=== PATIENT | male | born 1970 | race Caucasian/White ===

== ENCOUNTER 2018-09-02 10:02 | Inpatient (IN) | payer OTHER ==
--- NOTE | 2018-09-02 10:21 | ED ---
Abdominal Pain/Male - HPI Summary HPI Summary: The pt is a 48 y/o male brought in by ambulance to [facility] c/o upper Abd pain since 1 week ago worsened today. 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 He notes loss of appetite, pallor, fatigue, weight loss (210-159 lbs), nausea, vomiting, SOB and decreased bowel movements but denies fever, CP, cough , diarrhea and dysuria. Recently he needs to sit down after every 10-15 minutes. The sx are aggravated by exertion. The pain is rated 2/10 in severity. - History of Current Complaint Chief Complaint: EDAbdPain Stated Complaint: ABD PAIN WITH WEAKNESS Time Seen by Provider: 09/02/18 10:12 Hx Obtained From: Patient Onset/Duration: Lasting Weeks - 1 week, Still Present, Worse Since - Today morning Timing: Constant Severity Currently: Mild Pain Intensity: 2 Pain Scale Used: 0-10 Numeric Location: Diffuse - Upper abdomen Aggravating Factor(s): Other: - Exertion Alleviating Factor(s): Nothing Associated Signs And Symptoms: Positive: Decreased Appetite, Nausea, Vomiting. Negative: Fever, Chest Pain, Constipation - Allergies/Home Medications Allergies/Adverse Reactions: Allergies Allergy/AdvReac Type Severity Reaction Status Date / Time No Known Allergies Allergy Verified 09/02/18 10:20 Home Medications: Home Medications NK [No Home Medications Reported] 09/02/18 [History Confirmed 09/02/18] PMH/Surg Hx/FS Hx/Imm Hx Previously Healthy: No Endocrine/Hematology History: Denies: Hx Diabetes Cardiovascular History: Denies: Hx Hypertension Sensory History: Denies: Hx Deafness - Cancer History Cancer Type, Location and Year: None reported - Surgical History Surgery Procedure, Year, and Place: None reported Infectious Disease History: No Infectious Disease History: Denies: Traveled Outside the [place] in Last 30 Days - Family History Known Family History: Positive: None - Social History Occupation: Employed Full-time Lives: Alone Alcohol Use: None Substance Use Type: Reports: None Smoking Status (MU): Never Smoked Tobacco Review of Systems Positive: Fatigue. Negative: Fever Negative: Chest Pain Positive: Shortness Of Breath. Negative: Cough Gastrointestinal: Other - Positive: Loss of appetite, weight loss, decreases bowel movement Positive: Abdominal Pain - Upper , Diarrhea, Nausea. Negative: Vomiting Negative: dysuria Skin: Other - Positive: Pallor All Other Systems Reviewed And Are Negative: Yes Physical Exam - Summary Physical Exam Summary: Appearance: Well-appearing, Well-nourished, lying in bed comfortably Skin: Warm, dry, no obvious rash Eyes: sclera anicteric,conjunctival pallor present ENT: mucous membranes moist, pharynx appears normal Neck: Supple, nontender Respiratory: Clear to auscultation, no signs of respiratory distress Cardiovascular: Normal S1, S2. No murmurs. Normal distal pulses in tibial and radial bilaterally. Abdomen: Soft, nontender, mildly distended, normal active bowel sounds present, rectal exam reveals brown stool Musculoskeletal: Normal, Strength/ROM Intact Neurological: A&Ox3, awake and alert, mentation is normal, speech is fluent and appropriate Psychiatric: affect is normal, does not appear anxious or depressed Triage Information Reviewed: Yes Vital Signs On Initial Exam: Initial Vitals Temp Pulse Resp BP Pulse Ox 99.5 F 102 29 142/83 100 09/02/18 10:06 09/02/18 10:06 09/02/18 10:06 09/02/18 10:06 09/02/18 10:06 Vital Signs Reviewed: Yes Diagnostics - Vital Signs Vital Signs Temp Pulse Resp BP Pulse Ox 09/02/18 10:06 99.5 F 102 29 142/83 100 - Laboratory Result Diagrams: 09/03/18 07:51 09/03/18 07:51 Lab Statement: Any lab studies that have been ordered have been reviewed, and results considered in the medical decision making process. - CT Abd/Pel CT CT Interpretation Completed By: Radiologist - IMPRESSION 1. THERE IS A MALIGNANT MASS PRESENT IN THE RIGHT UPPER QUADRANT WHICH APPEARS TO ARISE IN THE PROXIMAL TRANSVERSE COLON ALTHOUGH DOES ABUT THE HEAD OF THE PANCREAS MOST CONSISTENT WITH A COLON CARCINOMA LESS LIKELY EXTENSION OF THE PANCREATIC CARCINOMA. THERE ARE SEVERAL ENLARGED MESENTERIC LYMPH NODES MOST CONSISTENT WITH METASTATIC DISEASE. 2. THERE ARE HYPODENSE HEPATIC LESIONS ALSO SUSPICIOUS FOR METASTATIC DISEASE. 3. MILD DIFFUSE DISTENTION OF THE SMALL BOWEL CONSISTENT WITH EITHER A PARALYTIC ILEUS OR PARTIAL OBSTRUCTION. The ED physician reviewed this radiology report. - EKG 10:31 Cardiac Rate: NL - 93 bpm EKG Rhythm: Sinus Rhythm Summary of EKG Findings: NSR at 93 BPM, P waves, QRS complex, and T waves are within normal limits, T waves and intervals are normal, no ischemic changes. This is a normal EKG Re-Evaluation - Re-Evaluation First Eval Re-Evaluation Time: 11:47 Change: Unchanged Comment: I performed a rectal exam that revealed brown stool. The sample has been sent for an occult test Abdominal Pain Fem Course/Dx - Course Course Of Treatment: A 48 year-old M presents to the ED with a CC of upper abd pain since 1 week ago worsened today. He was seen at 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 He notes loss of appetite, pallor, fatigue, weight loss (210-159), nausea, vomiting, SOB and decreased bowel movements but denies fever, CP, cough , diarrhea and dysuria. A physical exam revealed conjunctival pallor. An abd/ Pel CT is abnormal. An EKG is unremarkable. Labs revealed log Hgb at 5. In the ED course, the pt was given N.s 0.9% 1000 ml IV which improved the symptoms. I discussed the care of the pt with Dr. Pena- Twin who agreed to admit the pt. Patient will be admitted with a final Dx of severe anemia. Pt is agreeable with this plan. Allergies noted. - Diagnoses Provider Diagnoses: Severe anemia, Metastatic colon cancer to liver - Provider Notifications Discussed Care Of Patient With: Zoila Murcia Time Discussed With Above Provider: 11:43 Instructed by Provider To: Admit As Inpatient Discharge - Sign-Out/Discharge Documenting (check all that apply): Patient Departure - Admit - Discharge Plan Condition: Stable Disposition: ADMITTED TO [facility] - Billing Disposition and Condition Condition: STABLE Disposition: Admitted to [facility] - Attestation Statements Document Initiated by Susan: Yes Documenting Scribe: Olesya Silver Provider For Whom Susan is Documenting (Include Credential): Dr. Domenic Quezada MD Scribe Attestation: Olesya White , scribed for Dr. Domenic Quezada MD on 09/03/18 at 1017. Scribe Documentation Reviewed: Yes Provider Attestation: The documentation as recorded by the Olesya scott accurately reflects the service I personally performed and the decisions made by me, Dr. Domenic Quezada MD
[2018-09-02] MEDS ORDERED: NS 0.9% 1000 ML* 1,000 ML IV ONE (10:22)
[2018-09-02 10:50] LABS: INR 1.2 (0.77-1.02)
[2018-09-02 10:58] LABS: EGFR Non-African American 108.3 (>60)
[2018-09-02 11:01] LABS: Hematocrit 22 % (42-52); Hemoglobin 5.7 g/dl (14.0-18.0); Mean Corpuscular HGB Conc 26 g/dl (31-36); Mean Corpuscular Hemoglobin 13 pg (27-31); Mean Corpuscular Volume 50 fL (80-94); Mean Platelet Volume 8.3 fL (7.4-10.4); Platelet Count 774 10^3/ul (150-450); Red Cell Distribution Width 23 % (10.5-15); White Blood Count 8.3 10^3/ul (3.5-10.8)
[2018-09-02 11:34] LABS: ABS Basophils 0 10^3/ul (0-0.2); ABS Eosinophils 0 10^3/ul (0-0.6); ABS Lymphocytes 0.7 10^3/ul (1.0-4.8); ABS Monocytes 0.4 10^3/ul (0-0.8); ABS Neutrophils 7.1 10^3/ul (1.5-7.7); ABS Nucleated RBC 0 10^3/ul; Eosinophil % 0.2 % (0-6); Lymphocyte % 8.3 % (25-47); Nucleated Red Blood Cells % 0.1
[2018-09-02] MEDS ORDERED: Iohexol 300* (CONTRAST) 10 ML SDV IV ONE (12:55)
[2018-09-02] MEDS ORDERED: Morphine VIAL* 4 MG/ML VIAL (1 ml vial) IV PRN (14:29)
[2018-09-02] MEDS ORDERED: Acetaminophen TAB* 325 MG PO PRN (14:29)
[2018-09-02] MEDS ORDERED: PEG 3000 GI LAVAGE* 1 GALLON PO ONE (14:30)
[2018-09-02] MEDS ORDERED: Ondansetron INJ* 2 MG/ML VIAL IV PRN (14:30)
[2018-09-02] MEDS: NS 0.9% 1000 ML* 1,000 ML IV SCH (15:56)
--- NOTE | 2018-09-02 17:18 | HP ---
ADDENDUM NOW INCLUDED ON THIS REPORT CC: [facility] * HISTORY AND PHYSICAL: DATE OF ADMISSION: 09/02/18 PRIMARY CARE PROVIDER: One of the providers from [facility]. The patient does not remember the name. CHIEF COMPLAINT: Generalized weakness, lightheadedness, abdominal pain whenever the patient attempts to eat. HISTORY OF PRESENT ILLNESS: Deven Polk is a 48-year-old male with no significant past medical history, who stated that he used to drink beer "a lot" and he quoted 12 beers in a week. He stopped drinking in the summer of this year when started experiencing abdominal pain. He also noted that whenever he tries to eat, it hurts him in the upper abdomen and he changed his diet to "healthier diet." Nevertheless, he continues to have no appetite and continues to lose weight. The patient stated that his baseline weight approximately a year ago was 210 pounds and currently is 159. He stated that he has not eaten for several days because he just does not feel hungry. His last bowel movement was 5 days ago. He stated that whenever he tries to eat, he has abdominal pain in his epigastrium. In the recent past, he noted that he gets lightheaded when he tries to stand up and it takes him several minutes to do so. He also noted severe dyspnea on exertion. He denies any chest pain. The patient's hemoglobin was noted to be 5.7 with MCV of 50. He is going to be admitted with a diagnosis of severe anemia. CT of abdomen is pending at the time of dictation. PAST MEDICAL HISTORY: No surgical and no medical history. MEDICATIONS: No medications. ALLERGIES: No known drug allergies. FAMILY HISTORY: Parents and younger brother are healthy. No history of cancer , diabetes, or heart disease. SOCIAL HISTORY: The patient lives alone. He is . As a surrogate, he mentions his parents. He denies smoking and drug history. He used to drink 12 beers a week, but he quit in the summer of 2017. REVIEW OF SYSTEMS: Please see history of present illness. All the remaining 12 systems were reviewed with the patient and were otherwise negative. Specifically, the patient denies melanotic stools or bright red blood per rectum. PHYSICAL EXAMINATION GENERAL: The patient is a very pleasant 48-year-old male with a BMI of 21.6. The patient is in no acute distress. Alert, awake, and oriented x3. VITAL SIGNS: Blood pressure of 125/73, heart rate of 92 and regular, respiratory rate 19, oxygen saturation 100% on room air, temperature 99.5. HEENT: Head: Atraumatic, normocephalic. Eyes: Pupils are equal, reactive to light and accommodation. Oropharynx is clear. Mucosa moist. NECK: Supple. No JVD. No bruits bilaterally. RESPIRATORY: Clear to auscultation bilaterally. CARDIOVASCULAR: Regular rate and rhythm. No murmur. ABDOMEN: Slightly distend, soft, tender in the epigastric area with no rebound and no guarding. Bowel sounds are present in all 4 quadrants. Hepatomegaly noted. EXTREMITIES: There is no edema. Pulses are +2 bilaterally. No clubbing or cyanosis. NEUROLOGIC: Speech is clear. Cranial nerves II through XII are grossly intact. Motor strength is 5/5 bilaterally. PSYCHIATRIC: Oriented x3 with no evidence of anxiety or depression. SKIN: On evaluation of the skin, pallor noted. No ecchymotic areas or rashes. DIAGNOSTIC STUDIES/LAB DATA: Laboratory data showed white blood cell count of 8.3, hemoglobin of 5.7, hematocrit of 22, MCV of 50, platelets of 774. INR of 1.2, PTT of 28.3. Sodium was 133, potassium 3.8, chloride 100, carbon dioxide 17, anion gap of 16, BUN 15, creatinine 0.77. Liver function tests unremarkable apart from alkaline phosphatase, which is slightly elevated at 156. TSH of 2.04. The patient's EKG showed sinus tachycardia with a heart rate of 93 beats per minute with no significant ST changes. ASSESSMENT AND PLAN: A 48-year-old male with no significant past medical history who presents with severe anemia that is microcytic and symptoms of early satiety as well as epigastric abdominal pain. At this point, the differential includes GI bleed versus malignancy. CT of abdomen is pending at the time of dictation. The patient is going to be admitted to the hospital. He is currently being transfused a unit of packed red blood cells that was ordered in the ED. We will follow up with checking the patient's lactic acid, LDH, haptoglobin, ferritin as well as remaining iron studies. Stool occult blood is pending at the time of dictation. At this point, unfortunately due to the patient's symptomatology, possibility of malignancy is rather high. For DVT prophylaxis, the patient is going to be placed on sequential compression devices and due to severe microcytic anemia, anticoagulation is not going to be started. The patient's code status is full and his surrogates are his parents, who live in [place]. TIME SPENT: Approximately 62 minutes was spent on admission of this patient, more than half of that time was spent [id number] with the patient during the interview and physical exam. ADDENDUM: DATE OF ADMISSION: 09/02/18 Please note that the patient's CT of the abdomen and pelvis showed malignant mass present in the right upper quadrant, which appears to be arising from the proximal transverse colon, although does abut the head of the pancreas most consistent with a colon carcinoma, less likely an extension of pancreatic carcinoma. I discussed the case with both Dr. Miranda and Dr. Florentino. Both the gastroenterology and oncology service is going to be involved in the patient's care. Dr. Miranda is planning to likely perform colonoscopy tomorrow. The patient is going to receive preparation with GoLYTELY tonight. The patient was informed about the worrisome findings. All the questions were answered. [id number]/CPS #: [id number]/CPS #: [id number] [facility]
--- NOTE | 2018-09-02 19:21 | HP ---
HISTORY AND PHYSICAL: ADDENDUM: DATE OF ADMISSION: 09/02/18 Please note that the patient's CT of the abdomen and pelvis showed malignant mass present in the right upper quadrant, which appears to be arising from the proximal transverse colon, although does abut the head of the pancreas most consistent with a colon carcinoma, less likely an extension of pancreatic carcinoma. I discussed the case with both Dr. Miranda and Dr. Florentino. Both the core driller helper and Oncology is going to be involved in the patient's care. Dr. Miranda is planning to likely perform colonoscopy tomorrow. The patient is going to receive preparation with GoLYTELY tonight. The patient was informed about the worrisome findings. All the questions were answered. [id number]/[facility] #: [id number] [facility]
--- NOTE | 2018-09-03 00:36 | CONS ---
DICTATION ENDS ABRUPTLY GASTROENTEROLOGY CONSULTATION: DATE OF CONSULT: 09/02/18 CONSULTING PHYSICIANS: Zoila Nguyen REASON FOR CONSULTATION: Abdominal pain, weight loss, CT scan showing apparent transverse colon cancer. HISTORY OF PRESENT ILLNESS: This 48-year-old long-term [employer] employee with no significant past medical history began having trouble eating this summer. He had off and on abdominal pain. He lost his appetite. He did not have any vomiting. His bowels diminished in frequency consistent with reduced intake. He has been feeling weaker and weaker and was unable to work. His co-worker sent him to the emergency room. In the ER, CT of the abdomen showed transverse colon mass and probable dilation of the small bowel. His hemoglobin is 5.7, hematocrit 22, and MCV 50. PAST MEDICAL HISTORY: Essentially none. In the 17 years since he came to [place], this is his first hospital visit. MEDICATIONS: At home, none. ALLERGIES: None to drugs. FAMILY HISTORY: Says no history of cancer. 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 The lived here 3 to 4 years. They are now . She is in [place] and he is back here. He worked at the [employer] and now with [employer] in the last 10 years. Parents are still in [place] and do not know at this moment of his admission. REVIEW OF SYSTEMS: No history of syncope, seizures, KS, cardiac disease in general, TB, pulmonary disease, asthma, hepatitis, jaundice, renal stones, or gross hematuria. PHYSICAL EXAM: He is a pale man lying in bed, seemingly tired and almost breathless. He has no icterus. HEENT exam is otherwise unremarkable. He has no adenopathy. His lungs are clear. Heart sounds are regular. His abdomen is globally a little distended, it is firm. Bowel sounds are diminished, although he says feeling rumbling. Rectal deferred. Extremities show no edema. Pulses are intact. Neurologic, nonfocal, though he is weak. HOSPITAL COURSE: Since admission, he has been given Colyte and had 3 glasses but then about 2 hours later vomited up a large amount in the bathroom. He did have 1 bowel movement, his first in 4 days. He then commented that earlier today and yesterday he had not had any gas per rectum that he can recall. _ and has only been able to eat crackers and sips of water. He has not had a solid meals in [address] scan - transverse colon mass and small bowel dilation. 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 Situation is quite difficult. He may be able to nurse down some more Colyte and get cleaned out or ultimately enemas may be required. If he cannot get cleaned out, primary resection and ileostomy may be required. A surgical and oncology consult would appear valuable. DICTATION ENDS ABRUPTLY [id number]/[facility] #: [id number] [place]
[2018-09-03] MEDS: NS 0.9% 1000 ML* 1,000 ML IV SCH (04:44)
--- NOTE | 2018-09-03 06:18 | CONS ---
MEDICAL ONCOLOGY CONSULTATION REPORT: DATE OF CONSULT: 09/02/18 REASON FOR CONSULTATION: Likely colon carcinoma. HISTORY OF PRESENT ILLNESS: Deven Polk is a 48-year-old male who reports that he has not seen his physician since the . He reports approximately 6 to 8- week episodes of intermittent fatigue with decreased appetite, periumbilical pain. No change in bowel movements at that time, no associated nausea and vomiting. He reports that last week, these symptoms increased to the point where he was unable to go to work at [employer] Seven days ago, the fatigue was to the point where he collapsed into bed and was dizzy and lightheaded and symptoms increased with even minimal exertion. He reports having had no meals for the past 5 days, episodes of vomiting started 4 days ago and having pain with any oral intake more than water, even just apple juice. No bowel movements in the past 5 days. The bowel movements have been decreasing even prior to that period of time. Abdominal pain has been as much as 5 to 6 over 10. At the time of the consultation, he reports the pain at least 4/10. His weight has dropped from 200 to 210 pounds down to current 159. He reports having stopped drinking beer in March of this year due to change in taste and desire for the beer. Prior to this, he was drinking approximately a 12-pack per week but likely more. He reports since then only occasional alcohol. He is now getting dizzy and lightheaded on trying to stand and it takes him quite some period of time to do so. He has severe shortness of breath without chest pain even on walking short distances. PAST MEDICAL HISTORY: No previous hospitalizations. No surgeries. MEDICATIONS: None. ALLERGIES: None. FAMILY HISTORY: Father and mother alive and well at 71 and 72. Younger brother is in good health. A paternal grandmother with colon cancer about age 80, no other family history of malignancy. SOCIAL HISTORY: The patient denies any cigarettes or any street drugs. He reports alcohol in the past with a decrease in his alcohol intake since March but heavier before that. He lives alone. He reports he has a poor support system and no friends in the area and little contact with his coworkers outside of work. He moved to [place] to 2000 at that time his ex- was at [place]. They subsequently and he has no children. REVIEW OF SYSTEMS: Denies any headaches, neurologic complaints. Denies any significant rashes. Denies changes in bowel or bladder habits prior to the last several weeks. Review of systems otherwise negative except as discussed above. PHYSICAL EXAMINATION: A 48-year-old male, somewhat unkempt, lying comfortably in bed. Vital Signs: Blood pressure 125/73, pulse 92 and regular, O2 saturations 100% on room air. T-max 99.5. BMI of 21.6. HEENT: PERRL. EOMI. No erythema or exudate. No scleral icterus. Moist mucous membranes. No palpable cervical, supraclavicular, or axillary adenopathy. Lungs: Clear. Heart: Regular rate and rhythm without murmurs. Abdomen: Decreased bowel sounds throughout but bowel sounds are present. Liver is palpable below the right costal margin but does not seem to be enlarged. No masses are palpated. Extremities: No edema. Back no CVA or spinal tenderness. Neurologic exam without focal deficits. Cranial nerves III through XII intact. Motor is 5/5 throughout. DIAGNOSTIC STUDIES/LAB DATA: CBC: White count 8300, hematocrit 22, hemoglobin 5.7, MCV of 74, platelets counts 774,000, PTT 28.3, INR 1.2. Electrolytes: Sodium 133, potassium 3.8, chloride 100, bicarb 17, BUN 15, creatinine 0.77. Alk phos 156, AST and ALT and bilirubin are normal. CT scan with a large mass in the area of the right upper quadrant from the proximal transverse colon. There are at least two lesions in liver which appear suspicious. There is adenopathy nearby the colon lesion. There is a suggestion of some mesenteric fullness on review of the CT scan. IMPRESSION: Likely a colon cancer, highly likely to be metastatic. On the CT scan, there is also suggestion of early small bowel obstruction, although incomplete. Gastroenterology has been consulted as well as ourselves. The plan is for colonoscopy tomorrow to make a diagnosis and also to check and see how significant potential obstruction of the colon is. If for some reason, pathology cannot be obtained through the colonoscopy, a liver biopsy could certainly be performed. At current time the patient is receiving packed red blood cells and should be maintained with an H and H above 24/8 given his likely recent bleeding. CEA will be checked. At some point, either during the hospitalization or subsequently he will also require a CT scan of the chest to look for any other sites of metastatic disease. Further recommendations will follow, once we see how the patient has stabilized and once we have results from the colonoscopy. [id number]/[facility] #: [id number] [facility]
[2018-09-03 08:22] LABS: Hematocrit 24 % (42-52); Hemoglobin 6.8 g/dl (14.0-18.0); Mean Corpuscular HGB Conc 28 g/dl (31-36); Mean Corpuscular Hemoglobin 16 pg (27-31); Mean Corpuscular Volume 57 fL (80-94); Mean Platelet Volume 8.1 fL (7.4-10.4); Platelet Count 553 10^3/ul (150-450); White Blood Count 8.4 10^3/ul (3.5-10.8)
[2018-09-03 08:44] LABS: EGFR Non-African American 144.4 (>60)
[2018-09-03 09:05] LABS: ABS Basophils 0.1 10^3/ul (0-0.2); ABS Eosinophils 0 10^3/ul (0-0.6); ABS Monocytes 0.5 10^3/ul (0-0.8); ABS Neutrophils 6.7 10^3/ul (1.5-7.7); ABS Nucleated RBC 0 10^3/ul; Eosinophil % 0.3 % (0-6); Lymphocyte % 12.5 % (25-47); Nucleated Red Blood Cells % 0; Red Blood Count 4.21 10^6/ul (4.00-5.40); Red Cell Distribution Width 33 % (10.5-15)
[2018-09-03] MEDS ORDERED: fentaNYL* 50 MCG/ML 2 ML VIAL (100 MCG VIAL) ONE (14:38)
[2018-09-03] MEDS ORDERED: Midazolam* 1 MG/ML 10 ML VIAL (10 MG) ONE (14:38)
--- NOTE | 2018-09-03 17:51 | PN ---
Subjective Date of Service: 09/03/18 Interval History: Pt is feeling ok currently. He states his pain is minimal today but attributes that to not really eating much. He states he is not really passing any flatus. Objective Active Medications: Acetaminophen (Tylenol Tab*) 650 mg PO Q4H PRN PRN Reason: FEVER/PAIN Sodium Chloride (Ns 0.9% 1000 Ml*) 1,000 mls @ 75 mls/hr IV PER RATE ANGELA Last Admin: 09/03/18 04:44 Dose: 75 mls/hr Morphine Sulfate (Morphine Vial*) 1 mg IV Q2H PRN PRN Reason: PAIN Last Admin: 09/02/18 19:41 Dose: 1 mg Ondansetron HCl (Zofran Inj*) 4 mg IV Q6H PRN PRN Reason: NAUSEA Last Admin: 09/02/18 18:40 Dose: 4 mg Vital Signs - 8 hr 09/03/18 11:55 Temperature 98.4 F Pulse Rate 89 Respiratory 19 Rate Blood Pressure 115/60 (mmHg) O2 Sat by Pulse 100 Oximetry Oxygen Devices in Use Now: None Appearance: Middle aged male lying in bed, NAD Eyes: No Scleral Icterus Ears/Nose/Mouth/Throat: Mucous Membranes Moist Respiratory: Symmetrical Chest Expansion and Respiratory Effort, Clear to Auscultation - anteriorly Cardiovascular: NL Sounds; No Murmurs; No JVD, RRR, No Edema Abdominal: - - BS+ mildly distended and slightly firm, mildly tender to palpation Extremities: No Clubbing, Cyanosis Skin: No Nodules or Sclerosis Neurological: Alert and Oriented x 3 - Nutrition: Malnutrition Diagnosis/Plan Malnutrition Assessment by Registered Dietitian: Malnutrition Assessment Clinical Characteristics Acute,Severe Malnutrition Assessment: - Consumed only saltines x1 wk; intake <50% of Criteria needs x1 wk - UBW 212lbs x1 yr ago, current wt 160lbs (24.5 % wt loss x1 yr: severe); anticipate severe wt loss x1 wk w/ diminished nutrient consumption - Decrease in physiological function (chief complaint: generalized weakness) Malnutrition Assessment: - Will monitor ability to advance diet and offer Interventions appropriate nutritional supplement as able - As pt has been w/o adequate nutrition x ~ 1 week, may consider nutrition support (TPN) if unable to advance diet (within 3-5 days) Malnutrition Assessment: Goals 1) Recommend advancing diet as able; soft (GI related) likely best tolerated -May consider nutrition support (TPN) if unable to advance diet (within 3-5 days) 2) Ultimately, adequate po intake to support lean body mass and hydration status w/o undesired wt loss Result Diagrams: 09/03/18 07:51 09/03/18 07:51 Microbiology and Other Data: Microbiology 09/02/18 11:48 Stool Occult Blood (TRACIE) - Final Stool Assess/Plan/Problems-Billing Mr Polk is a 48 yo M with no significant PMHx who presented to the ER with c/o rectal bleeding and was found to have a large transverse colon mass. - Patient Problems (1) Colon cancer metastasized to liver Current Visit: Yes Status: Acute Code(s): C18.9 - MALIGNANT NEOPLASM OF COLON, UNSPECIFIED; C78.7 - SECONDARY MALIG NEOPLASM OF LIVER AND INTRAHEPATIC BILE DUCT SNOMED Code(s): 845019828 Comment: The patient likely has metastatic colon ca. Colonoscopy was performed today and an attempted was made to biopsy the mass but was technically difficult. If path negative bx of liver lesion should be considered. Will get surgery consult tomorrow as pt is nearly obstructed. (2) Iron deficiency anemia Current Visit: Yes Status: Acute Code(s): D50.9 - IRON DEFICIENCY ANEMIA, UNSPECIFIED SNOMED Code(s): 97416050 Comment: The patient presented with a marked anemia secondary to blood loss and severe iron deficiency. He has received 2 units PRBC and will receive a 3rd tonight. (3) DVT prophylaxis Current Visit: Yes Status: Acute Code(s): RTH9504 - SNOMED Code(s): 996952106 Comment: ambulation (4) Full code status Current Visit: Yes Status: Acute Code(s): Z78.9 - OTHER SPECIFIED HEALTH STATUS SNOMED Code(s): 406592038
[2018-09-03] MEDS ORDERED: Morphine VIAL* 4 MG/ML VIAL (1 ml vial) IV PRN (17:59)
--- NOTE | 2018-09-03 19:17 | PRO ---
AMENDED REPORT NOW INCLUDES DATE OF PROCEDURE - ESIGNED BEFORE ADJUSTMENT * DATE OF PROCEDURE: 09/03/18 - ROOM #420 PROCEDURE: Flexible sigmoidoscopy with biopsy. ADMITTING PHYSICIAN: Dr. Zoila Pena. INDICATIONS: Gentleman with weight loss, severe iron-deficiency anemia, and likely transverse colon mass on CT scan with lesions in liver suggestive of metastatic colon cancer. Scheduled for colonoscopy to assess for mass. The patient is unable to tolerate colonoscopy prep as he vomited. Given several enemas this morning. MEDICATIONS GIVEN: 1. Midazolam 9 mg IV. 2. Fentanyl 75 mcg IV. PROCEDURE IN DETAIL: Full disclosure of risks was reviewed with the patient as detailed on the consent form. The patient was placed in the left lateral decubitus position and monitored with continuous pulse oximetry, capnography, interval blood pressure monitoring, and direct observation. After anorectal exam was performed, the colonoscope was inserted into the rectum and advanced under direct vision to likely transverse colon. Findings and interventions are described below. The patient tolerated the procedure well and was recovered in the GI recovery area. FINDINGS: Anorectal exam was unremarkable. Adult colonoscope was inserted into the rectum and advanced slowly forward. There was solid stool encountered in the distal colon that became increasingly more present in the splenic flexure. I was able to advance past the splenic flexure around solid stool and move into the distal transverse colon. Around that point, a quite narrowed area was encountered with almost a volvulus-type appearance to the mucosa. There was solid stool in this area making it a bit challenging to see, although I suspect there was a polypoid mass that was partially visible at this narrowed point. Scope was unable to be advanced through this area. Unfortunately, the mass and the narrowed area were at a location that was difficult to access with biopsy forceps. Attempts were made to biopsy in the region of the suspected mass, and several pieces of tissue were obtained and will be sent to Pathology for review. Scope was withdrawn from the patient. An adult gastroscope was then inserted in an effort to further evaluate this narrowed area. Unfortunately, the gastroscope was unable to move past the splenic flexure in part due to looping in the left colon as well as the large amount of solid stool. IMPRESSION: 1. Scope advanced to distal transverse colon where a very narrowed area was encountered. Scope was unable to advance through this area. Suspect that I was able to obtain a partial view of the colonic mass in this narrowed area. Biopsies obtained from this area. 2. Remainder of colon was unable to be thoroughly evaluated due to the presence of solid stool, although no large masses or polyps seen as the scope was withdrawn. RECOMMENDATIONS: 1. Discussed with the patient and primary team. We will await pathology to see if biopsies are able to provide a diagnosis. If biopsies are nondiagnostic, then I would agree with oncology's recommendation and consider biopsy of liver lesion. 2. Agree with Oncology recommendation for CEA and CT chest. 3. The patient does appear obstructed in the area of transverse colon as colonoscope was unable to traverse the very narrowed portion of the colon. Would recommend evaluation by Surgery. Thank you very much for this kind referral. [id number]/[facility] #: [id number] CHEMA
[2018-09-04 07:01] LABS: Hematocrit 28 % (42-52); Hemoglobin 7.7 g/dl (14.0-18.0); Mean Corpuscular HGB Conc 28 g/dl (31-36); Mean Corpuscular Hemoglobin 17 pg (27-31); Mean Corpuscular Volume 62 fL (80-94); Mean Platelet Volume 8.4 fL (7.4-10.4); Platelet Count 549 10^3/ul (150-450); Red Blood Count 4.41 10^6/ul (4.00-5.40); Red Cell Distribution Width 36 % (10.5-15)
[2018-09-04] MEDS ORDERED: Famotidine IV* 10 MG/ML 2 ML (20 mg) IV ONE (10:44)
[2018-09-04 12:51] LABS: INR 1.25 (0.77-1.02)
[2018-09-04] MEDS ORDERED: DiMENhydriNATE IV* 50 MG/ML VIAL IV PUSH PRN ×2 (12:57→22:01)
[2018-09-04] MEDS ORDERED: Morphine VIAL* 4 MG/ML VIAL (1 ml vial) IV PRN (12:57)
[2018-09-04] MEDS ORDERED: fentaNYL* 50 MCG/ML 2 ML VIAL (100 MCG VIAL) IV PRN (12:57)
[2018-09-04] MEDS ORDERED: PROCHLORPERAZINE INJ 5 MG/ML 2 ML VIAL IV PRN ×2 (12:57→22:01)
[2018-09-04] MEDS ORDERED: Naloxone* 0.4 MG/ML 1 ML VIAL IV PRN ×2 (12:57→22:01)
[2018-09-04] MEDS ORDERED: Buffered Lidocaine 0.9% SYRIN* 5 ML/SYR SYRINGE INTRADERM ONE (12:59)
[2018-09-04] MEDS ORDERED: Scopolamine 1.5 mg* PATCH TRANSDERM ONE (12:59)
--- NOTE | 2018-09-04 15:59 | PN ---
Subjective Date of Service: 09/04/18 Interval History: Pt is feeling ok today. He is anxious for surgery this afternoon. He has many questions related to how he will feel after. He has no pain or nausea at this time. Objective Active Medications: Acetaminophen (Tylenol Tab*) 650 mg PO Q4H PRN PRN Reason: FEVER/PAIN Sodium Chloride (Ns 0.9% 1000 Ml*) 1,000 mls @ 75 mls/hr IV PER RATE ANGELA Last Admin: 09/03/18 04:44 Dose: 75 mls/hr Morphine Sulfate (Morphine Vial*) 2 mg IV Q2H PRN PRN Reason: PAIN Ondansetron HCl (Zofran Inj*) 4 mg IV Q6H PRN PRN Reason: NAUSEA Last Admin: 09/02/18 18:40 Dose: 4 mg Pharmacy Profile Note (Scopolamine Patch Remove*) 1 note PATCH OFF ONCE ONE Stop: 09/07/18 13:01 Oxygen Devices in Use Now: None Appearance: Middle aged thin pale male lying in bed, NAD Eyes: No Scleral Icterus Ears/Nose/Mouth/Throat: Mucous Membranes Moist Respiratory: Symmetrical Chest Expansion and Respiratory Effort, Clear to Auscultation Cardiovascular: NL Sounds; No Murmurs; No JVD, RRR, No Edema Abdominal: NL Sounds; No Tenderness; No Distention Extremities: No Clubbing, Cyanosis Skin: No Rash or Ulcers Neurological: Alert and Oriented x 3 - Nutrition: Malnutrition Diagnosis/Plan Malnutrition Assessment by Registered Dietitian: Malnutrition Assessment Clinical Characteristics Acute,Severe Malnutrition Assessment: - Consumed only saltines x1 wk; intake <50% of Criteria needs x1 wk - UBW 212lbs x1 yr ago, current wt 160lbs (24.5 % wt loss x1 yr: severe); anticipate severe wt loss x1 wk w/ diminished nutrient consumption - Decrease in physiological function (chief complaint: generalized weakness) Malnutrition Assessment: - Will monitor ability to advance diet and offer Interventions appropriate nutritional supplement as able - As pt has been w/o adequate nutrition x ~ 1 week, may consider nutrition support (TPN) if unable to advance diet (within 3-5 days) Malnutrition Assessment: Goals 1) Recommend advancing diet as able; soft (GI related) likely best tolerated -May consider nutrition support (TPN) if unable to advance diet (within 3-5 days) 2) Ultimately, adequate po intake to support lean body mass and hydration status w/o undesired wt loss Result Diagrams: 09/04/18 06:17 09/03/18 07:51 Microbiology and Other Data: Microbiology 09/02/18 11:48 Stool Occult Blood (TRACIE) - Final Stool Assess/Plan/Problems-Billing Mr Polk is a 48 yo M with no significant PMHx who presented to the ER with c/o rectal bleeding and was found to have a large transverse colon mass. - Patient Problems (1) Colon cancer metastasized to liver Current Visit: Yes Status: Acute Code(s): C18.9 - MALIGNANT NEOPLASM OF COLON, UNSPECIFIED; C78.7 - SECONDARY MALIG NEOPLASM OF LIVER AND INTRAHEPATIC BILE DUCT SNOMED Code(s): 277482751 Comment: Likely metastatic colon cancer (mets to liver). Surgery consulted today and plan is to go to the OR this afternoon. ?diverting colostomy vs resection. Liver biopsy to be done if lesion visible intra-op. Path from colonscopy biopsy negative but Dr. Ignacia Agustin stated it was technically difficult to get the biopsy and was not sure she actually biopsied the mass. Oncology to follow up in near future (after surgery). (2) Iron deficiency anemia Current Visit: Yes Status: Acute Code(s): D50.9 - IRON DEFICIENCY ANEMIA, UNSPECIFIED SNOMED Code(s): 08866526 Comment: Pt now s/p 3 unit PRBC. 2 units on hold for OR. Follow up H/H tomorrow AM. (3) DVT prophylaxis Current Visit: Yes Status: Acute Code(s): WKY1797 - SNOMED Code(s): 501978987 Comment: ambulation (4) Full code status Current Visit: Yes Status: Acute Code(s): Z78.9 - OTHER SPECIFIED HEALTH STATUS SNOMED Code(s): 641915588
[2018-09-04] MEDS ORDERED: fentaNYL* 50 MCG/ML 2 ML VIAL (100 MCG VIAL) ONE ×3 (17:31→21:43)
[2018-09-04] MEDS ORDERED: Midazolam* 1 MG/ML 5 ML VIAL (5 MG) ONE (17:31)
[2018-09-04] MEDS ORDERED: ERTApenem 1 GM in 50 mL NS IVPB STA (18:11)
[2018-09-04] MEDS ORDERED: KETAMINE HCL* 50 MG/ML 10 ML VIAL ONE (18:30)
[2018-09-04] MEDS ORDERED: Dexamethasone IV* 4 MG/ML 1 ML (4 MG) ONE (19:21)
[2018-09-04] MEDS ORDERED: Ondansetron INJ* 2 MG/ML VIAL ONE (19:21)
[2018-09-04] MEDS ORDERED: Morphine VIAL* 10 MG/ML 1 ML VIAL ONE (19:56)
[2018-09-04 21:01] LABS: Hematocrit 29 % (42-52); Hemoglobin 8.2 g/dl (14.0-18.0)
[2018-09-04] MEDS ORDERED: Morphine INJ* 10 MG/ML 1 ML CARPUJECT ONE (22:08)
[2018-09-04] MEDS: Morphine VIAL* 4 MG/ML VIAL (1 ml vial) IV PRN ×3 (22:09→22:20)
[2018-09-04] MEDS ORDERED: Ketorolac INJ* 30 MG/ML 1 ML VIAL ONE (22:18)
[2018-09-04] MEDS ORDERED: HYDROmorphone PCA* 20 MG/20 ML PCA.SYRING ONE (22:32)
[2018-09-04] MEDS ORDERED: Ketorolac INJ* 30 MG/ML 1 ML VIAL IV PUSH SCH (23:00)
[2018-09-04] MEDS: NS 0.9% @ 50 MLS/HR IV SCH (23:45)
[2018-09-05] MEDS ORDERED: Ketorolac INJ* 30 MG/ML 1 ML VIAL IV PUSH SCH
[2018-09-05] MEDS ORDERED: HYDROmorphone PCA* 20 MG/20 ML PCA.SYRING PCA SCH (00:30)
[2018-09-05] MEDS: Piperacillin/Tazobac ADVAN(*) 3.375 GM in NS 0.9% 100 ML* 100 ML IVPB SCH ×3 (00:50→17:24)
[2018-09-05] MEDS: Ketorolac INJ* 30 MG/ML 1 ML VIAL IV PUSH SCH ×4 (05:02→21:31)
[2018-09-05] MEDS: NS 0.9% @ 50 MLS/HR IV SCH ×2 (06:26→14:44)
[2018-09-05 06:29] LABS: Hematocrit 35 % (42-52); Hemoglobin 10.7 g/dl (14.0-18.0); Mean Corpuscular HGB Conc 30 g/dl (31-36); Mean Corpuscular Hemoglobin 20 pg (27-31); Mean Corpuscular Volume 66 fL (80-94); Mean Platelet Volume 8.3 fL (7.4-10.4); Platelet Count 623 10^3/ul (150-450); Red Cell Distribution Width 39 % (10.5-15); White Blood Count 18.8 10^3/ul (3.5-10.8)
[2018-09-05 06:43] LABS: EGFR Non-African American 105.1 (>60)
[2018-09-05 06:47] LABS: ABS Basophils 0 10^3/ul (0-0.2); ABS Eosinophils 0 10^3/ul (0-0.6); ABS Lymphocytes 0.3 10^3/ul (1.0-4.8); ABS Monocytes 0.4 10^3/ul (0-0.8); ABS Nucleated RBC 0 10^3/ul
[2018-09-05] MEDS ORDERED: NS 0.9% 1000 ML* 1,000 ML IV ONE (14:44)
--- NOTE | 2018-09-05 14:44 | PN ---
Subjective Date of Service: 09/05/18 Interval History: Pt is feeling ok today. He states his pain is currently under control on the [employer]. He has not had any stool material in the ileostomy bag yet. He denies any CP or SOB but does state when he takes a deep breath he feels a sharp twinge of pain at the incision. Objective Active Medications: Acetaminophen (Tylenol Tab*) 650 mg PO Q4H PRN PRN Reason: FEVER/PAIN Piperacillin Sod/Tazobactam (Sod 3.375 gm/ Sodium Chloride) 100 mls @ 25 mls/ hr IVPB Q8H [facility] Last Admin: 09/05/18 07:53 Dose: 25 mls/hr Hydromorphone HCl ([employer] Associate*) 20 mg in 20 mls @ 0 mls/hr [employer] .change Q24H [facility]; Protocol Sodium Chloride (Ns 0.9% 1000 Ml*) 1,000 mls @ 125 mls/hr IV PER RATE [facility] Last Admin: 09/05/18 06:26 Dose: 125 mls/hr Ketorolac Tromethamine (Toradol Inj*) 30 mg IV PUSH Q6H [facility] Stop: 09/06/18 16:01 Last Admin: 09/05/18 10:52 Dose: 30 mg Ondansetron HCl (Zofran Inj*) 4 mg IV Q6H PRN PRN Reason: NAUSEA Last Admin: 09/02/18 18:40 Dose: 4 mg Pharmacy Profile Note (Scopolamine Patch Remove*) 1 note PATCH OFF ONCE ONE Stop: 09/07/18 13:01 Vital Signs - 8 hr 09/05/18 09/05/18 09/05/18 07:24 07:44 07:50 Temperature 97.7 F Pulse Rate 90 106 Respiratory 16 16 16 Rate Blood Pressure 113/76 (mmHg) O2 Sat by Pulse 97 100 100 Oximetry 09/05/18 11:42 Temperature 98.6 F Pulse Rate 111 Respiratory 16 Rate Blood Pressure 119/78 (mmHg) O2 Sat by Pulse 99 Oximetry Oxygen Devices in Use Now: None Appearance: Middle aged male sitting up in a chair, NAD Eyes: No Scleral Icterus Ears/Nose/Mouth/Throat: Mucous Membranes Moist Respiratory: Symmetrical Chest Expansion and Respiratory Effort, Clear to Auscultation Cardiovascular: NL Sounds; No Murmurs; No JVD, No Edema, - - tachycardic but regular Abdominal: - - BS hypoactive, soft, ileostomy in RLQ with scant serosanguinous fluid in ostomy bag Extremities: No Clubbing, Cyanosis Skin: No Nodules or Sclerosis Neurological: Alert and Oriented x 3 - Nutrition: Malnutrition Diagnosis/Plan Malnutrition Assessment by Registered Dietitian: Malnutrition Assessment Clinical Characteristics Acute,Severe Malnutrition Assessment: - Consumed only saltines x1 wk; intake <50% of Criteria needs x1 wk - UBW 212lbs x1 yr ago, current wt 160lbs (24.5 % wt loss x1 yr: severe); anticipate severe wt loss x1 wk w/ diminished nutrient consumption - Decrease in physiological function (chief complaint: generalized weakness) Malnutrition Assessment: - Will monitor ability to advance diet and offer Interventions appropriate nutritional supplement as able - As pt has been w/o adequate nutrition x ~ 1 week, may consider nutrition support (TPN) if unable to advance diet (within 3-5 days) Malnutrition Assessment: Goals 1) Recommend advancing diet as able; soft (GI related) likely best tolerated -May consider nutrition support (TPN) if unable to advance diet (within 3-5 days) 2) Ultimately, adequate po intake to support lean body mass and hydration status w/o undesired wt loss Result Diagrams: 09/05/18 06:04 09/05/18 06:04 Microbiology and Other Data: Microbiology 09/02/18 11:48 Stool Occult Blood (TRACIE) - Final Stool Assess/Plan/Problems-Billing Mr Polk is a 48 yo M with no significant PMHx who presented to the ER with c/o rectal bleeding and was found to have a large transverse colon mass. - Patient Problems (1) Colon cancer metastasized to liver Current Visit: Yes Status: Acute Code(s): C18.9 - MALIGNANT NEOPLASM OF COLON, UNSPECIFIED; C78.7 - SECONDARY MALIG NEOPLASM OF LIVER AND INTRAHEPATIC BILE DUCT SNOMED Code(s): 442070655 Comment: Likely metastatic colon cancer (mets to liver). Pt is s/p resection with re-anastamosis and ileostomy. Liver biopsy unable to be performed. Pathology pending. Await further oncology recommendations. Continue pain control. Pt is tachycardic currently but I suspect secondary to pain/volume. Will bolus 1L NS now and see if that helps his HR. (2) Iron deficiency anemia Current Visit: Yes Status: Acute Code(s): D50.9 - IRON DEFICIENCY ANEMIA, UNSPECIFIED SNOMED Code(s): 31921636 Comment: Pt now s/p 5 unit PRBC. Follow up CBC tomorrow. (3) DVT prophylaxis Current Visit: Yes Status: Acute Code(s): AOD6539 - SNOMED Code(s): 411365292 Comment: SCDs, start SQ heparin when ok'ed by surgery (4) Full code status Current Visit: Yes Status: Acute Code(s): Z78.9 - OTHER SPECIFIED HEALTH STATUS SNOMED Code(s): 188303151
--- NOTE | 2018-09-05 14:54 | PN ---
Progress Note - Progress Note Date of Service: 09/05/18 Note: POD#1 s/p colectomy, enterectomy, ileostomy Afeb, VS noted Labs noted UO adequate Pain control adequate Abd-soft, sore, stoma edematous, small drainage from open areas Breathing unlabored Elev WBC likely due to stress of surgery and bowel spillage during surgery Will cont zosyn and recheck CBC 09/06 Cont liquids until better GI fxn OOB when able D/C holguin 09/06 Stoma teaching Disc findings at time of surgery (Dr Florentino aware as well.)
--- NOTE | 2018-09-05 19:14 | OP ---
CC: Dr. Jesús Mitchell; [facility] OPERATIVE REPORT: DATE OF OPERATION: 09/04/18 DATE OF : 72 SURGEON: Jesús Mitchell MD CONFERENCE PRODUCER: Franci Ochoa NP ANESTHESIOLOGIST: Dr. Aguiar. ANESTHESIA: General anesthetic. PRE-OP DIAGNOSIS: Carcinoma of the colon with obstruction. POST-OP DIAGNOSIS: Carcinoma of the colon with obstruction. OPERATIVE PROCEDURE: Laparotomy with partial resection of transverse colon tumor en bloc with multiple loops of small bowel, creation of end ileostomy and small bowel anastomoses. DESCRIPTION OF PROCEDURE: The patient was supine on the operating table, after adequate general anesthetic, compression stockings, Faviola Hugger warmer, and intravenous antibiotics, the abdomen was clipped and prepped with antiseptic and draped in a sterile fashion. The upper midline incision was created and ultimately it was extended to below the umbilicus. There was tumor mass in the proximal transverse colon midway between the hepatic flexure and the mid transverse colon. This tumor had several loops of small bowel adherent to it and it was pretty suspicious for tumor adhesions rather than inflammatory adhesions. There were 4 or 5 distinct loops that come in and out of the tumor and at least two of those area seemed to be partially obstructive as well. The tumor also seemed to be invading into the region of the root of the mesentery as well as the region of the pancreas and was adherent to the antrum of the stomach just proximal to the pylorus. Therefore, loops of bowel that were involved were followed from both ends. There was about 15 cm from ligament of Treitz to until the first loop that was adherent and there was one long segment thereafter that was maybe 60 to 80 cm and then a couple of more loops were adherent to the tumor and then the ileum had another 50 cm or so before the cecum. It was decided that these 2 longer segments would be preserved and the several small loops involved with the tumor would be resected. Therefore, the bowel at each case was divided with a PATY stapler thus freeing up all the small bowel from the tumor mass. The mesentery of these loops of small bowel was as well and the transverse colon was divided distal to lesion and the hepatic flexure was divided proximal to the lesion. With additional inspection , it became clear that the tumor mass was invading into the region of the root of the mesentery as well as what appeared to be into the antrum just above the pylorus. It was felt therefore that complete resection was not going to be feasible or safe. So, the tumor was fractured and a sizeable portion of the tumor was left behind. This probably included part of the back wall of the colon in that region, although upon looking into this remaining cavity, it appeared to be just a large mass of tumor. Omentum was sutured down over this area to keep the small bowel off it and the resection was therefore portion of transverse colon with multiple loops of small bowel. The jejunum was anastomosed to the ileum using a PATY stapler 80-mm cartridge, resultant enterotomy was closed with a TA 60 stapler 4.8mm staple and then the jejunum was anastomosed to the region just past the ligament of Treitz, also using a PATY 80 stapler, and then a TA 90 stapler was used to close the enterotomy. The loops of bowel in this area were dilated to about 4 cm across and were somewhat thickened. Silk sutures were used to reinforce both anastomoses and the mesentery defects were closed in both cases with 3-0 Vicryl. Based upon the appearance of the tumor, it would not be surprising if the third or fourth portion of the duodenum obstructed at some point and would not be surprising if this created symptoms by growing into the antrum of the stomach. Inspection of the liver identified a lesion way in the back by the kidney that I could feel. It felt grossly like a malignant tumor but I could not visualize it, and it was not felt that it would be particularly safe to biopsy this. The lesion that was more inferior in the liver and more anterior was not visible nor palpable during surgery. It was felt that given the magnitude of the primary tumor and the fact that this was in essence a palliative subtotal resection that it did not make sense to create harm in trying to get a biopsy of this liver nodule. It was felt that the cecum was far too dilated to be a good stoma and therefore the cecum was resected and terminal ileum used for stoma. This was brought out through the rectus sheath just above the level of the umbilicus. It was sutured to the fascia with 3-0 Vicryl and then matured using 3-0 Vicryl. This was done after closure of the abdominal wall. The operative field was well irrigated with warm saline solution, free fluid was suctioned down. Hemostasis was confirmed. Midline fascia was closed using running #1 Vicryl. The adipose was irrigated and the skin approximated with surgical dakota, although gaps were left open for additional wound care. Colostomy appliance was placed. He was awakened and brought to Recovery in good condition. There were no complications, no drains. Pathologic specimen was right colon and transverse colon with portions of small bowel. Sponge and instrument counts were correct x2. Estimated blood loss was 200 mL. He did receive 2 units of packed blood cells during the surgery. This surgery was more time consuming and difficult than typical. [id number]/[facility] #: [id number] [facility]
[2018-09-06] MEDS: Piperacillin/Tazobac ADVAN(*) 3.375 GM in NS 0.9% 100 ML* 100 ML IVPB SCH ×3 (00:19→16:10)
[2018-09-06] MEDS: NS 0.9% @ 50 MLS/HR IV SCH ×3 (01:36→18:10)
[2018-09-06] MEDS ORDERED: NS 0.9% 500 ML* 500 ML IV ONE (01:59)
[2018-09-06] MEDS: Ketorolac INJ* 30 MG/ML 1 ML VIAL IV PUSH SCH ×3 (04:05→16:11)
[2018-09-06 06:01] LABS: ABS Basophils 0 10^3/ul (0-0.2); ABS Eosinophils 0.1 10^3/ul (0-0.6); ABS Lymphocytes 0.5 10^3/ul (1.0-4.8); ABS Monocytes 0.4 10^3/ul (0-0.8); ABS Neutrophils 12.6 10^3/ul (1.5-7.7); ABS Nucleated RBC 0 10^3/ul; Eosinophil % 0.4 % (0-6); Hematocrit 27 % (42-52); Lymphocyte % 3.6 % (25-47); Mean Corpuscular HGB Conc 30 g/dl (31-36); Mean Corpuscular Hemoglobin 20 pg (27-31); Mean Corpuscular Volume 65 fL (80-94); Mean Platelet Volume 8.3 fL (7.4-10.4); Nucleated Red Blood Cells % 0; Platelet Count 395 10^3/ul (150-450); Red Blood Count 4.08 10^6/ul (4.00-5.40); Red Cell Distribution Width 40 % (10.5-15); White Blood Count 13.6 10^3/ul (3.5-10.8)
[2018-09-06 06:12] LABS: EGFR Non-African American 134.1 (>60)
--- NOTE | 2018-09-06 06:24 | PN ---
Hospitalist Progress Note Date of Service: 09/06/18 got called that urine output dropped despite of continous ivf 125 ns bolus 500 cc ---> urine output in two hours was 100cc extra
--- NOTE | 2018-09-06 08:02 | PN ---
Progress Note - Progress Note Date of Service: 09/06/18 Note: POD#2 s/p colectomy, ileostomy Afeb, VS noted Amanda liqs, No N/V UO adequate after bolus No pain issues, using STORM SASH MAKER very little Alert and coherent Breathing easy and unlabored Abd soft, flat , min tender, incis clean, probed, stoma edematous, with gas and stool Impr: s/p colectomy, enterectomy for Stage IV colon Ca Transition to oral meds D/C Amanda Full liquids Oncol F/U
--- NOTE | 2018-09-06 10:14 | PN ---
Subjective Date of Service: 09/06/18 Interval History: Pt is feeling ok today. He denies any severe pain in the abdomen. He has not had any stool out in the ostomy. He denies SOB. He has been up and walking. He has tolerated clears and will be advanced to full liquids today per Dr. Mitchell. Objective Active Medications: Acetaminophen (Tylenol Tab*) 650 mg PO Q4H PRN PRN Reason: FEVER/PAIN Piperacillin Sod/Tazobactam (Sod 3.375 gm/ Sodium Chloride) 100 mls @ 25 mls/ hr IVPB Q8H [facility] Last Admin: 09/06/18 08:01 Dose: 25 mls/hr Hydromorphone HCl (Dilaudid Sinker Winder*) 20 mg in 20 mls @ 0 mls/hr DERMATOLOGIST .change Q24H ANGELA; Protocol Sodium Chloride (Ns 0.9% 1000 Ml*) 1,000 mls @ 125 mls/hr IV PER RATE [facility] Last Admin: 09/06/18 09:48 Dose: 125 mls/hr Ketorolac Tromethamine (Toradol Inj*) 30 mg IV PUSH Q6H [facility] Stop: 09/06/18 16:01 Last Admin: 09/06/18 04:05 Dose: 30 mg Ondansetron HCl (Zofran Inj*) 4 mg IV Q6H PRN PRN Reason: NAUSEA Last Admin: 09/02/18 18:40 Dose: 4 mg Oxycodone/Acetaminophen (Percocet 5/325 Tab*) 1 tab PO Q3H PRN PRN Reason: PAIN - MODERATE Pharmacy Profile Note (Scopolamine Patch Remove*) 1 note PATCH OFF ONCE ONE Stop: 09/07/18 13:01 Vital Signs - 8 hr 09/06/18 09/06/18 09/06/18 04:13 04:30 06:23 Temperature 98.1 F Pulse Rate 85 Respiratory 16 16 18 Rate Blood Pressure 120/61 (mmHg) O2 Sat by Pulse 98 99 98 Oximetry 09/06/18 09/06/18 07:14 08:00 Temperature 97.5 F Pulse Rate 110 Respiratory 18 18 Rate Blood Pressure 133/73 (mmHg) O2 Sat by Pulse 100 100 Oximetry Oxygen Devices in Use Now: None Appearance: Middle aged male lying in bed, NAD Eyes: No Scleral Icterus Ears/Nose/Mouth/Throat: Mucous Membranes Moist Respiratory: Symmetrical Chest Expansion and Respiratory Effort, Clear to Auscultation - anteriorly Cardiovascular: NL Sounds; No Murmurs; No JVD, No Edema, - - HR mildly tachycardic but regular Abdominal: - - BS hypoactive, soft Extremities: No Clubbing, Cyanosis Skin: No Nodules or Sclerosis Neurological: Alert and Oriented x 3 - Nutrition: Malnutrition Diagnosis/Plan Malnutrition Assessment by Registered Dietitian: Malnutrition Assessment Clinical Characteristics Acute,Severe Malnutrition Assessment: - Consumed only saltines x1 wk; intake <50% of Criteria needs x1 wk - UBW 212lbs x1 yr ago, current wt 160lbs (24.5 % wt loss x1 yr: severe); anticipate severe wt loss x1 wk w/ diminished nutrient consumption - Decrease in physiological function (chief complaint: generalized weakness) Malnutrition Assessment: - Will monitor ability to advance diet and offer Interventions appropriate nutritional supplement as able - As pt has been w/o adequate nutrition x ~ 1 week, may consider nutrition support (TPN) if unable to advance diet (within 3-5 days) Malnutrition Assessment: Goals 1) Recommend advancing diet as able; soft (GI related) likely best tolerated -May consider nutrition support (TPN) if unable to advance diet (within 3-5 days) 2) Ultimately, adequate po intake to support lean body mass and hydration status w/o undesired wt loss Result Diagrams: 09/06/18 05:08 09/06/18 05:08 Microbiology and Other Data: Microbiology 09/02/18 11:48 Stool Occult Blood (TRACIE) - Final Stool Assess/Plan/Problems-Billing Mr Polk is a 48 yo M with no significant PMHx who presented to the ER with c/o rectal bleeding and was found to have a large transverse colon mass. - Patient Problems (1) Colon cancer metastasized to liver Current Visit: Yes Status: Acute Code(s): C18.9 - MALIGNANT NEOPLASM OF COLON, UNSPECIFIED; C78.7 - SECONDARY MALIG NEOPLASM OF LIVER AND INTRAHEPATIC BILE DUCT SNOMED Code(s): 089630664 Comment: Likely metastatic colon cancer (mets to liver). Pathology is pending. Pt is s/p resection with re-anastamosis and ileostomy. Await further oncology recommendations. Continue pain control with DERMATOLOGIST though convert to oral meds today per Dr. Mitchell. HR has improved with IVF boluses. Continue IVF until reliably taking in orals. Monitor HR. Await return of bowel funciton. I will fill out disability paperwork the patient has provided to me. (2) Iron deficiency anemia Current Visit: Yes Status: Acute Code(s): D50.9 - IRON DEFICIENCY ANEMIA, UNSPECIFIED SNOMED Code(s): 07826897 Comment: Pt now s/p 5 unit PRBC. H/H down from yesterday. Will follow up tomorrow. Pt with chronic iron deficiency anemia from blood loss secondary to the tumor and acute loss secondary to surgery. (3) DVT prophylaxis Current Visit: Yes Status: Acute Code(s): DGP9519 - SNOMED Code(s): 494714908 Comment: SCDs, start SQ heparin when ok'ed by surgery (4) Full code status Current Visit: Yes Status: Acute Code(s): Z78.9 - OTHER SPECIFIED HEALTH STATUS SNOMED Code(s): 191511883
[2018-09-06] MEDS: oxyCODONE/Acetamin 5/325 MG* TAB PO PRN ×2 (10:57→22:32)
[2018-09-07] MEDS: Piperacillin/Tazobac ADVAN(*) 3.375 GM in NS 0.9% 100 ML* 100 ML IVPB SCH ×3 (00:25→16:27)
[2018-09-07] MEDS: NS 0.9% @ 50 MLS/HR IV SCH ×2 (02:10→11:12)
--- NOTE | 2018-09-07 11:48 | PN ---
Progress Note - Progress Note Date of Service: 09/07/18 Note: POD#3 s/p colectomy, ileostomy T99, VS noted Amanda liqs, No N/V UO adequate, voiding without Amanda No pain issues, taking oral meds Alert and coherent Breathing easy and unlabored Abd soft, flat , min tender, incis clean, stoma edematous, with gas and stool Hgb 8, getting transfusion Impr: s/p colectomy, enterectomy for Stage IV colon Ca On oral meds Voiding well w/o Amanda Full liquids Await path, Oncol to see. Follow H/H Stoma teaching
[2018-09-07] MEDS: NS 0.9% 1000 ML* 1,000 ML IV SCH (12:02)
--- NOTE | 2018-09-07 12:47 | PN ---
Subjective Date of Service: 09/07/18 Interval History: Pt seen and examined. Meds and labs reviewed. CC: Pt mentions he feels some tolerable abd discomfort on eating ROS: Denied HERNÁNDEZ/dizziness, F/C, N/V, CP, SOB, increased cough, sputum production , diarrhea, constipation, dysuria, myalgias, arthralgias, throat pain, and new skin lesions. The rest of the 14 point ROS are unremarkable. PHYSICAL EXAM: GEN APPEARANCE: Awake, not in acute distress HEENT: NC/AT, PERRLA, moist oral mucosa, (-) throat erythema NECK: Soft, supple, (-) cervical LAD, (-)JVD HEART: S1S2 WNL, RRR, No MRG CHEST: CTA, BL, GAE, No W/R/R ABD: Soft, ND/NT, NABS 4x Q, (+)ileostomy pouch is very fluid in consistency and very dark in color, likely due to blood EXT: No C/C/E SKIN: Warm to touch PSYCH: No active psychosis, hallucinations, depression, SI/HI Objective Active Medications: Acetaminophen (Tylenol Tab*) 650 mg PO Q4H PRN PRN Reason: FEVER/PAIN Piperacillin Sod/Tazobactam (Sod 3.375 gm/ Sodium Chloride) 100 mls @ 25 mls/ hr IVPB Q8H [facility] Last Admin: 09/07/18 07:36 Dose: 25 mls/hr Sodium Chloride (Ns 0.9% 1000 Ml*) 1,000 mls @ 0 mls/hr IV PER RATE [facility] Last Admin: 09/07/18 12:02 Dose: 30 mls/hr Ondansetron HCl (Zofran Inj*) 4 mg IV Q6H PRN PRN Reason: NAUSEA Last Admin: 09/02/18 18:40 Dose: 4 mg Oxycodone/Acetaminophen (Percocet 5/325 Tab*) 1 tab PO Q3H PRN PRN Reason: PAIN - MODERATE Last Admin: 09/06/18 22:32 Dose: 1 tab Pharmacy Profile Note (Scopolamine Patch Remove*) 1 note PATCH OFF ONCE ONE Stop: 09/07/18 13:01 Vital Signs - 8 hr 09/07/18 09/07/18 09/07/18 07:31 07:41 10:58 Temperature 98.2 F 99.4 F Pulse Rate 99 106 Respiratory 16 16 18 Rate Blood Pressure 128/73 128/75 (mmHg) O2 Sat by Pulse 98 98 98 Oximetry 09/07/18 11:13 Temperature 98.6 F Pulse Rate 100 Respiratory 18 Rate Blood Pressure 137/77 (mmHg) O2 Sat by Pulse 99 Oximetry Oxygen Devices in Use Now: None - Nutrition: Malnutrition Diagnosis/Plan Malnutrition Assessment by Registered Dietitian: Malnutrition Assessment Clinical Characteristics Acute,Severe Malnutrition Assessment: - Consumed only saltines x1 wk; intake <50% of Criteria needs x1 wk - UBW 212lbs x1 yr ago, current wt 160lbs (24.5 % wt loss x1 yr: severe); anticipate severe wt loss x1 wk w/ diminished nutrient consumption - Decrease in physiological function (chief complaint: generalized weakness) Malnutrition Assessment: - Will monitor ability to advance diet and offer Interventions appropriate nutritional supplement as able - As pt has been w/o adequate nutrition x ~ 1 week, may consider nutrition support (TPN) if unable to advance diet (within 3-5 days) Malnutrition Assessment: Goals 1) Recommend advancing diet as able; soft (GI related) likely best tolerated -May consider nutrition support (TPN) if unable to advance diet (within 3-5 days) 2) Ultimately, adequate po intake to support lean body mass and hydration status w/o undesired wt loss Result Diagrams: 09/06/18 05:08 09/06/18 05:08 Microbiology and Other Data: Microbiology 09/02/18 11:48 Stool Occult Blood (TRACIE) - Final Stool Assess/Plan/Problems-Billing Mr Polk is a 48 yo M with no significant PMHx who presented to the ER with c/o rectal bleeding and was found to have a large transverse colon mass. - Patient Problems (1) Colon cancer metastasized to liver Current Visit: Yes Status: Acute Code(s): C18.9 - MALIGNANT NEOPLASM OF COLON, UNSPECIFIED; C78.7 - SECONDARY MALIG NEOPLASM OF LIVER AND INTRAHEPATIC BILE DUCT SNOMED Code(s): 663573628 Comment: -S/P laparotomy w/partial resection of transverse colon tumor en bloc w/ multiple loops of SB, creation of end ileostomy & SB anastomosis, POD #3 -Metastatic/stage IV -Pathology by flex sig on 09/03: Large intestinal mucosa w/focal acute superficial colitis with features compatible w/repair; no adenomatous or neoplastic features identified -Pathology by partial resection of transverse colon en bloc on 09/04 still pending -CEA ordered and will be drawn at 1500 with repeat CBC post-transfusion -Will defer with any further input from Oncology (2) Anemia Current Visit: Yes Status: Acute Code(s): D64.9 - ANEMIA, UNSPECIFIED SNOMED Code(s): 804436991 Comment: -Likely due to ALYCIA with acute post-operative blood loss -D/W Dr. Mitchell given ileostomy bag appears bloody with decrease of H&H from yesterday -Will transfuse with 1 unit of PRBC, appropriately typed and screened (6th PRBC transfused since admission) -Repeat CBC at 1500 and 2100 (3) Leukocytosis Current Visit: Yes Status: Acute Code(s): D72.829 - ELEVATED WHITE BLOOD CELL COUNT, UNSPECIFIED SNOMED Code(s): 551945785 Comment: -Improved -Possibly due to reactive cause given recent surgery -Currently on Zosyn without focus (since 09/05); leukocytosis improving---if continues to have no focus, consider discontinuation in AM -Consider re-imaging if H&H continues to decrease (4) DVT prophylaxis Current Visit: Yes Status: Acute Code(s): NTO4837 - SNOMED Code(s): 236804693 Comment: -Continue SCDs Status and Disposition: -For PT eval
[2018-09-07] MEDS ORDERED: Scopolamine PATCH Remove* 1 NOTE MISC PATCH OFF ONE (13:00)
[2018-09-07 14:57] LABS: Hematocrit 29 % (42-52); Hemoglobin 8.8 g/dl (14.0-18.0); Mean Corpuscular HGB Conc 30 g/dl (31-36); Mean Corpuscular Hemoglobin 20 pg (27-31); Mean Corpuscular Volume 66 fL (80-94); Platelet Count 398 10^3/ul (150-450); Red Blood Count 4.38 10^6/ul (4.00-5.40); Red Cell Distribution Width 40 % (10.5-15); White Blood Count 13.8 10^3/ul (3.5-10.8)
[2018-09-07] MEDS: oxyCODONE/Acetamin 5/325 MG* TAB PO PRN (17:57)
[2018-09-07 21:12] LABS: Hematocrit 27 % (42-52); Hemoglobin 8.2 g/dl (14.0-18.0); Mean Corpuscular HGB Conc 31 g/dl (31-36); Mean Corpuscular Hemoglobin 20 pg (27-31); Mean Corpuscular Volume 66 fL (80-94); Mean Platelet Volume 8.2 fL (7.4-10.4); Platelet Count 406 10^3/ul (150-450); Red Cell Distribution Width 40 % (10.5-15); White Blood Count 11.8 10^3/ul (3.5-10.8)
[2018-09-07 21:53] LABS: Schistocytes 1+
[2018-09-07 21:54] LABS: ABS Basophils 0 10^3/ul (0-0.2); ABS Eosinophils 0 10^3/ul (0-0.6); ABS Lymphocytes 0.6 10^3/ul (1.0-4.8); ABS Monocytes 0.5 10^3/ul (0-0.8); ABS Neutrophils 10.6 10^3/ul (1.5-7.7); ABS Nucleated RBC 0 10^3/ul; Eosinophil % 0.4 % (0-6); Lymphocyte % 5.2 % (25-47); Nucleated Red Blood Cells % 0
[2018-09-08] MEDS: Piperacillin/Tazobac ADVAN(*) 3.375 GM in NS 0.9% 100 ML* 100 ML IVPB SCH ×4 (00:40→23:52)
[2018-09-08 05:16] LABS: Hematocrit 28 % (42-52); Hemoglobin 8.3 g/dl (14.0-18.0); Mean Corpuscular HGB Conc 30 g/dl (31-36); Mean Corpuscular Hemoglobin 20 pg (27-31); Mean Corpuscular Volume 66 fL (80-94); Mean Platelet Volume 8.3 fL (7.4-10.4); Platelet Count 386 10^3/ul (150-450); Red Blood Count 4.24 10^6/ul (4.00-5.40); Red Cell Distribution Width 41 % (10.5-15); White Blood Count 11.3 10^3/ul (3.5-10.8)
[2018-09-08 05:29] LABS: EGFR Non-African American 212.1 (>60)
[2018-09-08] MEDS ORDERED: Magnesium Sulfate 2 GM IV* 2 GM/50 ML BAG IVPB ONE (07:44)
[2018-09-08] MEDS ORDERED: Potassium Chlor TAB* 20 MEQ TAB.ER PO ONE (07:45)
[2018-09-08 08:14] LABS: ABS Basophils 0 10^3/ul (0-0.2); ABS Eosinophils 0.2 10^3/ul (0-0.6); ABS Lymphocytes 0.8 10^3/ul (1.0-4.8); ABS Monocytes 0.5 10^3/ul (0-0.8); ABS Neutrophils 9.8 10^3/ul (1.5-7.7); ABS Nucleated RBC 0 10^3/ul; Eosinophil % 1.4 % (0-6); Lymphocyte % 6.7 % (25-47); Nucleated Red Blood Cells % 0.2
[2018-09-08] MEDS ORDERED: Ibuprofen TAB* 600 MG PO PRN (10:05)
--- NOTE | 2018-09-08 10:19 | PN ---
Progress Note - Progress Note Date of Service: 09/08/18 Note: POD#4 s/p colectomy, ileostomy T98+, VS noted Jorge L liqs, No N/V Stoma large output UO large, voiding without Amanda No pain issues, taking oral meds Alert and coherent Breathing easy and unlabored Abd soft, flat , min tender, incis clean, wound probed, stoma edematous, Wound closed w/ steri-strips H/H stable. K+ low--getting replacement Impr: s/p colectomy, enterectomy for Stage IV colon Ca On oral meds Voiding well w/o Amanda Full liquids, advance in AM if jorge l well today Await path, Oncol to see. Follow K+ Stoma teaching
[2018-09-08] MEDS: KCL 20 MEQ/100 ML IVPREMIX* 20 MEQ/100 ML BAG IV SCH ×3 (10:33→15:54)
--- NOTE | 2018-09-08 14:35 | PN ---
Subjective Date of Service: 09/08/18 Interval History: Pt seen and examined. Meds and labs reviewed. CC: Pt mentions he feels some tolerable abd discomfort on eating ROS: Denied HERNÁNDEZ/dizziness, F/C, N/V, CP, SOB, increased cough, sputum production , diarrhea, constipation, dysuria, myalgias, arthralgias, throat pain, and new skin lesions. The rest of the 14 point ROS are unremarkable. PHYSICAL EXAM: GEN APPEARANCE: Awake, not in acute distress HEENT: NC/AT, PERRLA, moist oral mucosa, (-) throat erythema NECK: Soft, supple, (-) cervical LAD, (-)JVD HEART: S1S2 WNL, RRR, No MRG CHEST: CTA, BL, GAE, No W/R/R ABD: Soft, ND/NT, NABS 4x Q, (+)ileostomy pouch with bloody fluid EXT: No C/C/E SKIN: Warm to touch PSYCH: No active psychosis, hallucinations, depression, SI/HI Objective Active Medications: Acetaminophen (Tylenol Tab*) 650 mg PO Q4H PRN PRN Reason: FEVER/PAIN Piperacillin Sod/Tazobactam (Sod 3.375 gm/ Sodium Chloride) 100 mls @ 25 mls/ hr IVPB Q8H [facility] Last Admin: 09/08/18 08:30 Dose: 25 mls/hr Sodium Chloride (Ns 0.9% 1000 Ml*) 1,000 mls @ 0 mls/hr IV PER RATE [facility] Last Admin: 09/07/18 12:02 Dose: 30 mls/hr Ibuprofen (Motrin Tab*) 600 mg PO Q6H PRN PRN Reason: PAIN Ondansetron HCl (Zofran Inj*) 4 mg IV Q6H PRN PRN Reason: NAUSEA Last Admin: 09/02/18 18:40 Dose: 4 mg Oxycodone/Acetaminophen (Percocet 5/325 Tab*) 1 tab PO Q3H PRN PRN Reason: PAIN - MODERATE Last Admin: 09/07/18 17:57 Dose: 1 tab Vital Signs - 8 hr 09/08/18 09/08/18 08:00 11:21 Temperature 97.8 F 98.0 F Pulse Rate 85 85 Respiratory 16 16 Rate Blood Pressure 137/82 121/72 (mmHg) O2 Sat by Pulse 99 96 Oximetry Oxygen Devices in Use Now: None - Nutrition: Malnutrition Diagnosis/Plan Malnutrition Assessment by Registered Dietitian: Malnutrition Assessment Clinical Characteristics Acute,Severe Malnutrition Assessment: - Consumed only saltines x1 wk; intake <50% of Criteria needs x1 wk - UBW 212lbs x1 yr ago, current wt 160lbs (24.5 % wt loss x1 yr: severe); anticipate severe wt loss x1 wk w/ diminished nutrient consumption - Decrease in physiological function (chief complaint: generalized weakness) Malnutrition Assessment: - Will monitor ability to advance diet and offer Interventions appropriate nutritional supplement as able - As pt has been w/o adequate nutrition x ~ 1 week, may consider nutrition support (TPN) if unable to advance diet (within 3-5 days) Malnutrition Assessment: Goals 1) Recommend advancing diet as able; soft (GI related) likely best tolerated -May consider nutrition support (TPN) if unable to advance diet (within 3-5 days) 2) Ultimately, adequate po intake to support lean body mass and hydration status w/o undesired wt loss Result Diagrams: 09/08/18 05:02 09/08/18 05:02 Microbiology and Other Data: Microbiology 09/02/18 11:48 Stool Occult Blood (TRACIE) - Final Stool Assess/Plan/Problems-Billing Mr oPlk is a 48 yo M with no significant PMHx who presented to the ER with c/o rectal bleeding and was found to have a large transverse colon mass. - Patient Problems (1) Colon cancer metastasized to liver Current Visit: Yes Status: Acute Code(s): C18.9 - MALIGNANT NEOPLASM OF COLON, UNSPECIFIED; C78.7 - SECONDARY MALIG NEOPLASM OF LIVER AND INTRAHEPATIC BILE DUCT SNOMED Code(s): 307743329 Comment: -S/P laparotomy w/partial resection of transverse colon tumor en bloc w/ multiple loops of SB, creation of end ileostomy & SB anastomosis, POD #4 -Metastatic/stage IV -Pathology by flex sig on 09/03: Large intestinal mucosa w/focal acute superficial colitis with features compatible w/repair; no adenomatous or neoplastic features identified -Pathology by partial resection of transverse colon en bloc on 09/04 still pending -CEA high normal at 4.6 -Will defer with any further input from Oncology -Pt Still on Zosynunclear indication; consider D/C unless surgery surgical site is infected; leukocytosis likely reactive (2) Anemia Current Visit: Yes Status: Acute Code(s): D64.9 - ANEMIA, UNSPECIFIED SNOMED Code(s): 232157451 Comment: -Likely due to ALYCIA with acute post-operative blood loss -D/W Dr. Mitchell given ileostomy bag appears bloody with decrease of H&H from yesterday -S/P 1 unit of PRBC transfusion yesterday and H&H still decreasing mildly -Repeat CBC and will transfuse if needed (3) Leukocytosis Current Visit: Yes Status: Acute Code(s): D72.829 - ELEVATED WHITE BLOOD CELL COUNT, UNSPECIFIED SNOMED Code(s): 403945457 Comment: -Improved -Possibly due to reactive cause given recent surgery -Currently on Zosyn without focus (since 09/05); leukocytosis improving---if continues to have no focus, consider discontinuation in AM -Consider re-imaging if H&H continues to decrease (4) DVT prophylaxis Current Visit: Yes Status: Acute Code(s): FHI5363 - SNOMED Code(s): 442654532 Comment: -Continue SCDs Status and Disposition: -Appreciate PT evalpt at baseline function
[2018-09-08 15:02] LABS: Hematocrit 32 % (42-52); Hemoglobin 9.6 g/dl (14.0-18.0); Mean Corpuscular HGB Conc 30 g/dl (31-36); Mean Corpuscular Hemoglobin 20 pg (27-31); Mean Corpuscular Volume 67 fL (80-94); Mean Platelet Volume 8.3 fL (7.4-10.4); Platelet Count 504 10^3/ul (150-450); Red Blood Count 4.82 10^6/ul (4.00-5.40); Red Cell Distribution Width 41 % (10.5-15); White Blood Count 12.5 10^3/ul (3.5-10.8)
[2018-09-08 16:44] LABS: ABS Basophils 0.1 10^3/ul (0-0.2); ABS Eosinophils 0.1 10^3/ul (0-0.6); ABS Lymphocytes 0.9 10^3/ul (1.0-4.8); ABS Monocytes 0.5 10^3/ul (0-0.8); ABS Neutrophils 10.9 10^3/ul (1.5-7.7); ABS Nucleated RBC 0 10^3/ul; Eosinophil % 0.8 % (0-6); Lymphocyte % 7.4 % (25-47); Nucleated Red Blood Cells % 0.1
[2018-09-09 06:18] LABS: Hematocrit 30 % (42-52); Mean Corpuscular HGB Conc 30 g/dl (31-36); Mean Corpuscular Hemoglobin 20 pg (27-31); Mean Corpuscular Volume 66 fL (80-94); Mean Platelet Volume 8.1 fL (7.4-10.4); Platelet Count 465 10^3/ul (150-450); Red Blood Count 4.53 10^6/ul (4.00-5.40); Red Cell Distribution Width 41 % (10.5-15); White Blood Count 10.1 10^3/ul (3.5-10.8)
[2018-09-09 06:28] LABS: EGFR Non-African American 206.6 (>60)
[2018-09-09 07:24] LABS: ABS Basophils 0.1 10^3/ul (0-0.2); ABS Eosinophils 0.2 10^3/ul (0-0.6); ABS Lymphocytes 0.8 10^3/ul (1.0-4.8); ABS Monocytes 0.6 10^3/ul (0-0.8); ABS Neutrophils 8.5 10^3/ul (1.5-7.7); ABS Nucleated RBC 0 10^3/ul; Eosinophil % 2.3 % (0-6); Lymphocyte % 7.7 % (25-47); Nucleated Red Blood Cells % 0
[2018-09-09] MEDS: Piperacillin/Tazobac ADVAN(*) 3.375 GM in NS 0.9% 100 ML* 100 ML IVPB SCH ×3 (08:09→23:37)
[2018-09-09] MEDS: NS 0.9% 1000 ML* 1,000 ML IV SCH (08:11)
[2018-09-09] MEDS: KCL 20 MEQ/100 ML IVPREMIX* 20 MEQ/100 ML BAG IV SCH ×3 (09:49→16:13)
--- NOTE | 2018-09-09 10:00 | PN ---
Subjective Date of Service: 09/09/18 Interval History: C/o no abd pain. Feels stronger every day. Able to empty ileostomy bag but doesn 't know how to change it yet. ambulating with no problems Objective Active Medications: Acetaminophen (Tylenol Tab*) 650 mg PO Q4H PRN PRN Reason: FEVER/PAIN Piperacillin Sod/Tazobactam (Sod 3.375 gm/ Sodium Chloride) 100 mls @ 25 mls/ hr IVPB Q8H [facility] Last Admin: 09/09/18 08:09 Dose: 25 mls/hr Sodium Chloride (Ns 0.9% 1000 Ml*) 1,000 mls @ 0 mls/hr IV PER RATE [facility] Last Admin: 09/09/18 08:11 Dose: 10 mls/hr Potassium Chloride (Potassium Chloride 20 Meq/100 Ml Ivpremix*) 20 meq in 100 mls @ 50 mls/hr IV Q2H [facility] Stop: 09/09/18 15:59 Last Admin: 09/09/18 09:49 Dose: 50 mls/hr Ibuprofen (Motrin Tab*) 600 mg PO Q6H PRN PRN Reason: PAIN Ondansetron HCl (Zofran Inj*) 4 mg IV Q6H PRN PRN Reason: NAUSEA Last Admin: 09/02/18 18:40 Dose: 4 mg Oxycodone/Acetaminophen (Percocet 5/325 Tab*) 1 tab PO Q3H PRN PRN Reason: PAIN - MODERATE Last Admin: 09/07/18 17:57 Dose: 1 tab Vital Signs - 8 hr 09/09/18 09/09/18 09/09/18 03:28 07:43 07:47 Temperature 97.9 F 97.2 F Pulse Rate 88 86 Respiratory 18 18 18 Rate Blood Pressure 133/78 126/72 (mmHg) O2 Sat by Pulse 97 96 Oximetry Oxygen Devices in Use Now: None Appearance: 48 yo M in nAD, AAOx3 Eyes: No Scleral Icterus, PERRLA Ears/Nose/Mouth/Throat: NL Teeth, Lips, Gums, Mucous Membranes Moist Neck: NL Appearance and Movements; NL JVP, Trachea Midline Respiratory: Symmetrical Chest Expansion and Respiratory Effort, Clear to Auscultation Cardiovascular: NL Sounds; No Murmurs; No JVD, RRR Abdominal: NL Sounds; No Tenderness; No Distention, - - ileostomy in RLQ with stoma pink, bag with liquid stool in it. Midline abd incision stapled, no dehiscence Lymphatic: No Cervical Adenopathy Extremities: No Edema, No Clubbing, Cyanosis Skin: No Rash or Ulcers, No Nodules or Sclerosis Neurological: Alert and Oriented x 3, NL Muscle Strength and Tone - Nutrition: Malnutrition Diagnosis/Plan Malnutrition Assessment by Registered Dietitian: Malnutrition Assessment Clinical Characteristics Acute,Severe Malnutrition Assessment: - Consumed only saltines x1 wk; intake <50% of Criteria needs x1 wk - UBW 212lbs x1 yr ago, current wt 160lbs (24.5 % wt loss x1 yr: severe); anticipate severe wt loss x1 wk w/ diminished nutrient consumption - Decrease in physiological function (chief complaint: generalized weakness) Malnutrition Assessment: - Will monitor ability to advance diet and offer Interventions appropriate nutritional supplement as able - As pt has been w/o adequate nutrition x ~ 1 week, may consider nutrition support (TPN) if unable to advance diet (within 3-5 days) Malnutrition Assessment: Goals 1) Recommend advancing diet as able; soft (GI related) likely best tolerated -May consider nutrition support (TPN) if unable to advance diet (within 3-5 days) 2) Ultimately, adequate po intake to support lean body mass and hydration status w/o undesired wt loss Result Diagrams: 09/09/18 06:02 09/09/18 06:02 Microbiology and Other Data: Microbiology 09/02/18 11:48 Stool Occult Blood (TRACIE) - Final Stool Assess/Plan/Problems-Billing Mr Polk is a 48 yo M with no significant PMHx who presented to the ER with c/o rectal bleeding and was found to have a large transverse colon mass. - Patient Problems (1) Colon cancer metastasized to liver Comment: S/P laparotomy w/partial resection of transverse colon tumor en bloc w/ multiple loops of SB, creation of end ileostomy & SB anastomosis on 09/04/18 -Metastatic/stage IV -Pathology by flex sig on 09/03: Large intestinal mucosa w/focal acute superficial colitis with features compatible w/repair; no adenomatous or neoplastic features identified -Pathology by partial resection of transverse colon en bloc on 09/04 still pending -CEA high normal at 4.6 -Will defer with any further input from Oncology -Pt Still on Zosynunclear indication; consider D/C unless surgery surgical site is infected; leukocytosis likely reactive (2) Anemia Comment: s/p total of 6 U PRBC transfused. Last one on 09/07/18 -due to iron deff and malignancy -H&H stable today (3) Leukocytosis Comment: -resolved -Possibly due to reactive cause given recent surgery -Currently on Zosyn without focus (since 09/05); leukocytosis improving---if continues to have no focus, consider discontinuation -Consider re-imaging if H&H continues to decrease (4) DVT prophylaxis Comment: -Continue SCDs, in face of severe anemia s/p 6 U PRBC transfusion anticoagulants were not used Status and Disposition: -d/c home planned in 24-48 H
--- NOTE | 2018-09-09 14:40 | PN ---
Progress Note - Progress Note Date of Service: 09/09/18 SOAP: Subjective: Doing better Tolerating regular diet Large amount of bilious fluid out ostomy Pain well controlled Objective: Temp Pulse Resp BP Pulse Ox 97.2 F 86 18 126/72 96 09/09/18 07:43 09/09/18 07:43 09/09/18 07:47 09/09/18 07:43 09/09/18 07:43 Intake & Output 09/07/18 09/08/18 09/09/18 09/10/18 06:59 06:59 06:59 06:59 Intake Total 4855 3377 2556 2328 Output Total 2100 4050 4525 900 Balance 3145 -481 -4417 1426 Intake: IV Fluids 207 990 1336 1125 ABX - ZOSYN 105 326 100 Kcl 385 NS (0.9%) 1970 457 210 2487 IVPB 220 110 203 ABX - ZOSYN 220 110 103 Kcl 100 Oral 2560 2277 1220 1000 Output: Urine 1950 2900 3275 Amanda 50 Liquid Stool 400 Ileostomy 100 1150 1250 500 Other: Estimated Void Large Medium # Bowel Movements 1 1 # Voids 1 4 PEX: Comfortable Lungs are clear Abd is soft and non-distended. Bowel sounds are present. Ileostomy with bilious fluid in bag. Wound is CDI Laboratory Results - last 24 hr 09/07/18 09/08/18 09/09/18 21:00 14:15 06:02 WBC 12.5 H 10.1 RBC 4.82 4.53 Hgb 9.6 L 9.0 L Hct 32 L 30 L MCV 67 L 66 L MCH 20 L 20 L MCHC 30 L 30 L RDW 41 H 41 H Plt Count 504 H D 465 H MPV 8.3 8.1 Neut % (Auto) 87.3 H 83.9 H Lymph % (Auto) 7.4 L 7.7 L Antelope % (Auto) 4.0 5.5 Eos % (Auto) 0.8 2.3 Baso % (Auto) 0.5 0.6 Absolute Neuts (auto) 10.9 H 8.5 H Absolute Lymphs (auto) 0.9 L 0.8 L Absolute Monos (auto) 0.5 0.6 Absolute Eos (auto) 0.1 0.2 Absolute Basos (auto) 0.1 0.1 Absolute Nucleated RBC 0 0 Nucleated RBC % 0.1 0 Hypochromasia 2+ Anisocytosis 1+ Microcytosis 2+ Elliptocytes 1+ Hem Pathologist Commnt Sodium Potassium Chloride Carbon Dioxide Anion Gap BUN Creatinine Est GFR ( Amer) Est GFR (Non-Af Amer) BUN/Creatinine Ratio Glucose Calcium Phosphorus Magnesium 09/09/18 06:02 WBC RBC Hgb Hct MCV MCH MCHC RDW Plt Count MPV Neut % (Auto) Lymph % (Auto) Antelope % (Auto) Eos % (Auto) Baso % (Auto) Absolute Neuts (auto) Absolute Lymphs (auto) Absolute Monos (auto) Absolute Eos (auto) Absolute Basos (auto) Absolute Nucleated RBC Nucleated RBC % Hypochromasia Anisocytosis Microcytosis Elliptocytes Hem Pathologist Commnt Sodium 139 Potassium 3.1 L Chloride 109 Carbon Dioxide 25 Anion Gap 5 BUN 4 L Creatinine 0.44 L Est GFR ( Amer) 249.9 Est GFR (Non-Af Amer) 206.6 BUN/Creatinine Ratio 9.1 Glucose 109 H Calcium 7.9 L Phosphorus 3.4 Magnesium 2.0 Assessment: S/P exlap with colectomy and small bowel resection with ileostomy for colon cancer-final pathology pending Hypokalemia Plan: Replete K+ Regular diet Increase activity Await final path, oncology recommendations His mother is coming to [place] today Hopeful discharge in next 1-2 days.
[2018-09-10 06:57] LABS: Hematocrit 30 % (42-52); Hemoglobin 9.4 g/dl (14.0-18.0); Mean Corpuscular HGB Conc 32 g/dl (31-36); Mean Corpuscular Hemoglobin 21 pg (27-31); Mean Corpuscular Volume 67 fL (80-94); Mean Platelet Volume 8.2 fL (7.4-10.4); Platelet Count 469 10^3/ul (150-450); Red Blood Count 4.42 10^6/ul (4.00-5.40); Red Cell Distribution Width 40 % (10.5-15); White Blood Count 9.5 10^3/ul (3.5-10.8)
[2018-09-10 07:05] LABS: EGFR Non-African American 191.4 (>60)
[2018-09-10 08:13] LABS: ABS Basophils 0.1 10^3/ul (0-0.2); ABS Eosinophils 0.3 10^3/ul (0-0.6); ABS Lymphocytes 0.9 10^3/ul (1.0-4.8); ABS Monocytes 0.6 10^3/ul (0-0.8); ABS Neutrophils 7.6 10^3/ul (1.5-7.7); ABS Nucleated RBC 0 10^3/ul; Eosinophil % 3.4 % (0-6); Lymphocyte % 9.3 % (25-47); Nucleated Red Blood Cells % 0
--- NOTE | 2018-09-10 08:22 | PN ---
Progress Note - Progress Note Date of Service: 09/10/18 Note: POD#6 s/p colectomy T99, VS OK UO large Amanda po's Stoma active Pain control good Abd benign, soft, min-tender, incis clean, stoma pink Discussed path Home tomorrow if adequate teaching Oncol to see.
[2018-09-10] MEDS: Piperacillin/Tazobac ADVAN(*) 3.375 GM in NS 0.9% 100 ML* 100 ML IVPB SCH (08:24)
--- NOTE | 2018-09-10 16:50 | PN ---
Subjective Date of Service: 09/10/18 Interval History: Pt feels well. no complaints. [place] how to change his ileostomy bag. Awaiting discussion with oncology tomorrow AM Objective Active Medications: Acetaminophen (Tylenol Tab*) 650 mg PO Q4H PRN PRN Reason: FEVER/PAIN Ondansetron HCl (Zofran Inj*) 4 mg IV Q6H PRN PRN Reason: NAUSEA Last Admin: 09/02/18 18:40 Dose: 4 mg Oxycodone/Acetaminophen (Percocet 5/325 Tab*) 1 tab PO Q3H PRN PRN Reason: PAIN - MODERATE Last Admin: 09/07/18 17:57 Dose: 1 tab Vital Signs - 8 hr 09/10/18 09:02 Temperature 98.8 F Pulse Rate 76 Blood Pressure 122/73 (mmHg) Oxygen Devices in Use Now: None Appearance: 48 yo m in nAD, aAOx3 Eyes: No Scleral Icterus, PERRLA Ears/Nose/Mouth/Throat: NL Teeth, Lips, Gums, Mucous Membranes Moist Neck: NL Appearance and Movements; NL JVP, Trachea Midline Respiratory: Symmetrical Chest Expansion and Respiratory Effort, Clear to Auscultation Cardiovascular: NL Sounds; No Murmurs; No JVD, RRR Abdominal: - - midline incision clean, stapled, no dehiscence, R ileostomy with pink stoma, liquid stool in bag Lymphatic: No Cervical Adenopathy Extremities: No Edema Skin: No Rash or Ulcers, No Nodules or Sclerosis Neurological: Alert and Oriented x 3, NL Muscle Strength and Tone - Nutrition: Malnutrition Diagnosis/Plan Malnutrition Assessment by Registered Dietitian: Malnutrition Assessment Clinical Characteristics Acute,Severe Malnutrition Assessment: - Consumed only saltines x1 wk; intake <50% of Criteria needs x1 wk - UBW 212lbs x1 yr ago, current wt 160lbs (24.5 % wt loss x1 yr: severe); anticipate severe wt loss x1 wk w/ diminished nutrient consumption - Decrease in physiological function (chief complaint: generalized weakness) Malnutrition Assessment: - Will monitor ability to advance diet and offer Interventions appropriate nutritional supplement as able - As pt has been w/o adequate nutrition x ~ 1 week, may consider nutrition support (TPN) if unable to advance diet (within 3-5 days) Malnutrition Assessment: Goals 1) Recommend advancing diet as able; soft (GI related) likely best tolerated -May consider nutrition support (TPN) if unable to advance diet (within 3-5 days) 2) Ultimately, adequate po intake to support lean body mass and hydration status w/o undesired wt loss Result Diagrams: 09/10/18 06:37 09/10/18 06:37 Microbiology and Other Data: Microbiology 09/02/18 11:48 Stool Occult Blood (TARCIE) - Final Stool Assess/Plan/Problems-Billing Mr Polk is a 48 yo M with no significant PMHx who presented to the ER with c/o rectal bleeding and was found to have a large transverse colon mass. - Patient Problems (1) Colon cancer metastasized to liver Comment: S/P laparotomy w/partial resection of transverse colon tumor en bloc w/ multiple loops of SB, creation of end ileostomy & SB anastomosis on 09/04/18 -Metastatic/stage IV -Pathology by flex sig on 09/03: Large intestinal mucosa w/focal acute superficial colitis with features compatible w/repair; no adenomatous or neoplastic features identified -Pathology by partial resection of transverse colon shows adanocarcinoma for colon with positive LN's. Pt will see oncology tomorrow to discuss (2) Anemia Comment: s/p total of 6 U PRBC transfused. Last one on 09/07/18 -due to iron deff and malignancy -H&H stable today (3) Leukocytosis Comment: -resolved -Possibly due to reactive cause given recent surgery (4) DVT prophylaxis Comment: -Continue SCDs, in face of severe anemia s/p 6 U PRBC transfusion anticoagulants were not used Status and Disposition: -d/c home planned tomorrow
[2018-09-11 08:24] VITALS: BP 117/74
--- NOTE | 2018-09-11 09:56 | PN ---
Progress Note - Progress Note Date of Service: 09/11/18 SOAP: Subjective: []Met with pt. and mother. POD 8 Feeling well. Minimal pain located at incision site. Intermittent sharp LUQ pain only at night, helps to walk around. Dealing with ostomy though admits to feeling overwhelmed and not knowing exactly what it should be "like." Admits to feeling overwhelmed and fearful regarding what comes next. Medications: Acetaminophen (Tylenol Tab*) 650 mg PO Q4H PRN PRN Reason: FEVER/PAIN Ondansetron HCl (Zofran Inj*) 4 mg IV Q6H PRN PRN Reason: NAUSEA Last Admin: 09/02/18 18:40 Dose: 4 mg Oxycodone/Acetaminophen (Percocet 5/325 Tab*) 1 tab PO Q3H PRN PRN Reason: PAIN - MODERATE Last Admin: 09/07/18 17:57 Dose: 1 tab Objective: [] Vital Signs Temp Pulse Resp BP Pulse Ox 99.3 F 82 18 117/74 98 09/11/18 07:46 09/11/18 07:46 09/11/18 08:25 09/11/18 07:46 09/11/18 08:25 A&Ox3, neuro grossly non-focal Communicating clearing and asking appropriate questions No obvious acute distress Laboratory Tests 09/02/18 09/07/18 09/08/18 12:17 14:47 05:02 Hgb Hct MCV MCH RDW Iron < 15 L TIBC 330 % Saturation 5 L Unsat Iron Binding < 315 Transferrin 236 Ferritin 2.1 L Total Bilirubin 0.50 AST 8 L ALT 8 Alkaline Phosphatase 58 Albumin 2.3 L Carcinoembryonic Ag 4.6 09/10/18 06:37 Hgb 9.4 L Hct 30 L MCV 67 L MCH 21 L RDW 40 H Iron TIBC % Saturation Unsat Iron Binding Transferrin Ferritin Total Bilirubin AST ALT Alkaline Phosphatase Albumin Carcinoembryonic Ag Assessment/Plan: []48 yo male with newly diagnosed metastatic colon cancer s/p partial resection with ileostomy. Reviewed current diagnosis with pathology confirming colon cancer, however further studies pending (MSI and BRAF). He has been very hesitant to pursue chemotherapy, however today admits he doesn't fully understand what this means and is scared by the idea of it. I discussed treatment options at length including first line therapy with mFOLFOX discussing that while treatment would be palliative it could extend his life, goal would be focused on QOL with strict symptom management. Side effects quickly reviewed. At this time we do not know his MSI status, however if this is positive we can consider immunotherapy (Pembrolizumab) upfront with response rates between 30-40% with duration of response not met in trails. Clinical trials are always an option and he was notably intrigued by this and his mother notes they live near [place]. Without any treatment his prognosis is limited to months due to liver involvement though specifics are difficult to determine as is liver function is still intact. Should he decide against any further therapy for his cancer he is a candidate for hospice and I would recommend this to increase his support services. I discussed that people have different types of goals and having a diagnosis of advanced cancer does not mean that these goals can not still be accomplished, I encouraged him to discuss this with his mother as he considers his options so that he can determine if he wants to try treatment (as he can always stop should he not tolerate it). Finally I reviewed that as he plans to move to [place] we can assist with appropriate referrals and/or a second opinion should he so wish. His mother requested printouts regarding the medications and diagnosis and I provided these with his discharge summary. He is appropriately overwhelmed by his diagnosis and I attempted to provided support and encouraged he reach out to the local cancer resource center as well. His mother asked appropriate questions regarding finances and for now I have encouraged him to discuss with his director personal and we will revisit at f/u. Recommend starting oral iron due to ALYCIA 2/2 blood loss on presentation. Side effects are generally GI focused and we will re-assess his tolerance at his follow-up. In regards to his LUQ pain at night this may be related to post op digestive changes and I suggest a trial of simethicone PRN. TOO Florentino 09/16 @ 0936 at which time we will also have him see our ONN regarding financial concerns. At f/u we will make an referral for an oncologist in [place] or hospice services dependent on his decision. 60 min spent face to face with pt. and mother, 100% counseling []
[2018-09-11] MEDS ORDERED: Ferrous Sulfate TAB* 325 MG PO SCH (10:00)
--- NOTE | 2018-09-11 12:01 | PN ---
Progress Note - Progress Note Date of Service: 09/11/18 Note: S: seen earlier by Dr. Mitchell. POD#7. Occ passing pain LUQ. Has not required any analgesics. Amanda diet well. Ambulating. Seen by oncology. O: Vital Signs - 8 hr 09/11/18 09/11/18 07:46 08:25 Temperature 99.3 F Pulse Rate 82 Respiratory 18 18 Rate Blood Pressure 117/74 (mmHg) O2 Sat by Pulse 98 98 Oximetry Intake and Output Last 24 Hours 09/09/18 09/10/18 09/11/18 09/12/18 06:59 06:59 06:59 06:59 Intake Total 2556 4302 960 550 Output Total 4525 1650 450 Balance -1969 2652 510 550 Intake: IV Fluids 1336 1222 ABX - ZOSYN 326 100 Kcl 385 NS (0.9%) 625 1122 IVPB 430 ABX - ZOSYN 330 Kcl 100 Oral 1220 2650 960 550 Output: Urine 3275 450 450 Liquid Stool 400 Ileostomy 1250 800 Other: Estimated Void Medium Large # Voids 1 1 Gen: appears comfortable Heart: reg Lungs: clear Abd: +BS; ostomy good color; moderate edema; incision clean; small amts of serosang drainage at gaps between dak[place]. Steris in place. Soft; min tenderness. A: s/p partial colectomy and small bowel rsxn with end-ileostomy for obstructing colon ca; doing well; ready for d/c P: home today; ostomy care per nsg; surg f/u next Tu.
[2018-09-11] MEDS: oxyCODONE/Acetamin 5/325 MG* TAB PO PRN (13:41)
--- NOTE | 2018-09-11 21:34 | DS ---
CC: [facility]; [facility] Outpatient Followup * DISCHARGE SUMMARY: DATE OF ADMISSION: 09/02/18 DATE OF DISCHARGE: 09/11/18 ATTENDING SURGEON: Jesús Mitchell MD * (ARLETTE Suarez, dictating) HOSPITAL COURSE: Please refer to admission history and physical and operative note for details as well as additional consultations. The patient presented with a significant iron deficiency anemia and CT scan that showed an obstructing transverse colon mass. The patient underwent colonoscopy on , though the heel dipper was unable to advance the scope to the tumor. The patient was taken to the operating room on 09/04/[address] Mitchell to perform an exploratory laparotomy, partial colectomy with en bloc resection of transverse colon tumor, which included multiple loops of small bowel with consequent small bowel resection and multiple small bowel anastomoses. An end ileostomy was created. The patient was covered with IV Zosyn postoperatively until approximately postoperative day 5. He has had normalization of his white blood cell count. He was seen in consultation by Gastroenterology, the hospitalist service and Oncology. As of the morning of discharge, temperature 99.3 which is his 24-hour max. Blood pressure 117/74, pulse 82, respirations 18, room air saturation 98%. See today's progress note for details of exam. The patient has not been requiring any analgesics in the past 24 to 48 hours; however, he did request a small prescription for Percocet p.r.n., which is sent to his pharmacy ([facility] registry checked). He will also continue iron, which will be prescribed by the oncology service. He has an appointment with their office next 09/16/18, and also with our office on the same date at 9:45 a.m. ARLETTE SUAREZ [id number]/[facility] #: [id number] [place]
--- NOTE | 2018-09-12 05:34 | DS ---
CC: [facility]; Dr. Mitchell; Dr. Cortez; Dr. Miranda; Dr. Florentino; [facility] * DISCHARGE SUMMARY: DATE OF ADMISSION: 09/02/18 DATE OF DISCHARGE: 09/11/18 PRIMARY CARE PROVIDER: A physician from [facility]. DISCHARGE DIAGNOSES: 1. Severe microcytic anemia due to colon cancer. 2. Colon cancer with obstructive symptoms. 3. Status post laparotomy with partial resection of transverse colon tumor with multiple loops of small bowel, creation of end ileostomy and small bowel anastomosis that was performed by Dr. Mitchell on 09/04/18. 4. The patient is status post transfusion of a total of 6 packed red blood cells during the hospital stay. MEDICATIONS AT DISCHARGE: Include: 1. Oxycodone 5/325 mg 1 tablet every 3 hours p.r.n. 2. Ferrous sulfate 325 mg b.i.d. 3. Tylenol on a p.r.n. basis. DIAGNOSTIC STUDIES/LAB DATA: CT of abdomen and pelvis obtained on 09/02/18, impression: "There is a malignant mass present in the right upper quadrant, which appears to arise in the proximal transverse colon, although it does abut the head of the pancreas, most consistent with a colon carcinoma, less likely extension of the pancreatic carcinoma. There are several enlarged mesenteric lymph nodes most consistent with metastatic disease. There are hypodense hepatic lesions also suspicious for metastatic disease. Distention of the small bowel consistent with either paralytic ileus or partial obstruction." Pathology report obtained during the patient's surgery, impression: "Invasive adenocarcinoma of colon with moderately differentiated infiltrates with 6/32 lymph nodes positive for metastatic carcinoma." Remaining laboratory values are as follows: On 09/10/18, white blood cell count of 9.5, hemoglobin of 9.4, hematocrit of 30, MCV of 67, and platelets of 469,000. On 09/10/18, sodium of 140, potassium 3.5, chloride 109, carbon dioxide 26, BUN 3, creatinine 0.47. The patient's CEA level was 4.6. TSH level was 2.04 at admission. CONSULTATIONS DURING THE HOSPITAL STAY: Included Dr. Miranda and Dr. Dia Agustin from Gastroenterology, Dr. Mitcehll from Surgery, and Dr. Florentino from Oncology. PROCEDURES PERFORMED: Included: Flexible sigmoidoscopy with biopsy performed by Dr. Cortez on 09/03/18 with impression: "Scope advanced to distal transverse colon where a very narrowed area was encountered. Scope was unable to advance through this area. Suspect that I was able to obtain a partial view of the colonic mass in this narrowed area. Biopsies obtained from this area. Remainder of colon was unable to be thoroughly evaluated due to the presence of solid stool, although no large masses or polyps seen as the scope was withdrawn." On 09/04/18, Dr. Mitchell performed a laparotomy with partial resection of transverse colon tumor with multiple loops of small bowel, creation of end ileostomy and small bowel anastomosis. HOSPITALIZATION COURSE: Deven Polk is a 48-year-old male with history of alcohol abuse, who presented to the hospital complaining of inability to eat. He was noted to have severe microcytic anemia on presentation, although his stool was heme- negative. CT of the abdomen and pelvis showed colon mass. The patient appeared to have partial ileus due to the obstructive mass. He was seen by Gastroenterology and flex sig was performed. Initial biopsy did not yield any positive results of marked colon abnormality though. At this point, Dr. Mitchell saw the patient from surgical consult and recommended a laparotomy. On 09/04/18, the patient had laparotomy with resection of the mass and ileostomy placement. The pathology from this surgical intervention shows invasive adenocarcinoma moderately differentiated. Dr. Florentino saw the patient in consultation and is going to follow up with the patient as an outpatient. For the time being, the patient is considering if he should undergo treatment or choose hospice. Please also note that the patient was noted to have abnormalities on the liver with possibility for metastatic disease. Palliative Care consult was also requested and hospice will follow up with the patient as an outpatient. Due to his severe microcytic anemia, the patient was transfused multiple units of blood, a total of 6 during his hospital stay with hemoglobin stable by the time of discharge. He is placed on iron supplement by the time of discharge. At discharge, the patient is going home with the help of his mother, who is visiting from [place] and will help him during the transition time. He is scheduled with ARLETTE Suarez, on 09/16/18 at 9:45 p.m. from the surgical service. Dr. Florentino is going to see the patient also on 09/16/18 at 12:40 p.m. for Oncology consultation as outpatient. The patient is also to follow up with [facility] after his hospital stay. PHYSICAL EXAMINATION: At the time of discharge, blood pressure of 117/74, heart rate of 84 and regular, respiratory rate 18, oxygen saturation 98% on room air, temperature 99.3. General: The patient is a very pleasant 48-year- old male, who is in no acute distress. Alert, awake, and oriented x3. HEENT: Head: Atraumatic, normocephalic. Eyes: Pupils are equal, reactive to light and accommodation. Oropharynx is clear. Mucosa moist. Neck: Supple. No JVD. No bruits bilaterally. Cardiovascular: Regular rate and rhythm. No murmur. Respiratory: Clear to auscultation bilaterally. Abdomen: Postoperative with midline incision, which is stapled with no dehiscence. No evidence of infection or drainage noted. The colostomy is localized in the right lower quadrant with stoma edges pink and no evidence of abnormality noted. Colostomy bag has liquid stool in it. The abdomen is soft, nontender. Bowel sounds are present in all 4 quadrants. Extremities: There is no edema. Pulses are +2 bilaterally. No clubbing or cyanosis. Neuro Evaluation: Cranial nerves II through XII grossly intact. Motor strength is 5/5 bilaterally. Please note that this is a short summary of the patient's hospitalization. Please refer to further medical records for details. TIME SPENT: Approximately 40 minutes were spent on the patient's discharge. [id number]/[facility] #: [id number] [place]
== END 2018-09-11 14:40 | disposition hospice, home (50) | DRG 329 ==
LOC: ED 10:02 → MED 12:54 → SSU 09-04 23:20
PROVIDERS: ADMIT Internal Medicine; ATTEND Internal Medicine
PROC: 30233N1 Transfusion of Nonautologous Red Blood Cells into Peripheral Vein, Percutaneous Approach (ICD-10-PCS; 2018-09-02)
PROC: 0DBL8ZX Excision of Transverse Colon, Via Natural or Artificial Opening Endoscopic, Diagnostic (ICD-10-PCS; 2018-09-03)
PROC: 0DJ68ZZ Inspection of Stomach, Via Natural or Artificial Opening Endoscopic (ICD-10-PCS; 2018-09-03)
PROC: 0FJ00ZZ Inspection of Liver, Open Approach (ICD-10-PCS; 2018-09-04)
PROC: 0D1B0Z4 Bypass Ileum to Cutaneous, Open Approach (ICD-10-PCS; 2018-09-04)
PROC: 0DBB0ZZ Excision of Ileum, Open Approach (ICD-10-PCS; 2018-09-04)
PROC: 0DBH0ZZ Excision of Cecum, Open Approach (ICD-10-PCS; 2018-09-04)
PROC: 07BB0ZZ Excision of Mesenteric Lymphatic, Open Approach (ICD-10-PCS; 2018-09-04)
PROC: 0DBF0ZZ Excision of Right Large Intestine, Open Approach (ICD-10-PCS; 2018-09-04)
PROC: 0DBL0ZZ Excision of Transverse Colon, Open Approach (ICD-10-PCS; principal; 2018-09-04 15:45)
DX: C18.4 Malignant neoplasm of transverse colon (principal); E43 Unspecified severe protein-calorie malnutrition; C77.2 Secondary and unspecified malignant neoplasm of intra-abdominal lymph nodes; C78.7 Secondary malignant neoplasm of liver and intrahepatic bile duct; K56.0 Paralytic ileus; D62 Acute posthemorrhagic anemia; D63.0 Anemia in neoplastic disease; Z51.5 Encounter for palliative care; K52.9 Noninfective gastroenteritis and colitis, unspecified; E87.6 Hypokalemia; Z72.89 Other problems related to lifestyle; Z80.0 Family history of malignant neoplasm of digestive organs; Z68.21 Body mass index [BMI] 21.0-21.9, adult
CPT/HCPCS: 36415; 74177; 80048; 80053; 81210; 81275; 81403; 81404; 82272; 82330; 82378; 82728; 82803; 83010; 83540; 83550; 83605; 83615; 83735; 84100; 84443; 85014; 85018; 85025; 85027; 85060; 85610; 85730; 86850; 86900; 86901; 86922; 88305; 88309; 88341; 88342; 93005; 99156; 99157; 99233; 99284; A9270-GY; C1776; J1100; J1170; J1335; J1885; J2250; J2270; J2405; J2543; J3010; J3475; J3480; P9040; Q9967